=== PATIENT | male | born 1985 | race Caucasian/White ===

== ENCOUNTER 2017-06-28 08:42 | Emergency (ER) | payer MEDICARE, MEDICAID ==
[~2017-06-28] VITALS: Ht 167.6 cm; Wt 64.4 kg
[2017-06-28 08:47] VITALS: BP 135/85
[2017-06-28] MEDS ORDERED: BUPR1FIL7 SL (08:52)
--- NOTE | 2017-06-28 08:55 | ER Report ---
History and Physical Time Seen By MD: 08:53 Hx. of Stated Complaint: PT PRESENTS WITH HX OF HYDRODENITIS(?) . STATES IT IS PAINFUL AND NOW IT IS SPREADING HPI/ROS CHIEF COMPLAINT: hidradenitis pain and flare up HISTORY OF PRESENT ILLNESS: This is a 32 year old male. He is having flare up of hidradenitis in groin through toward buttocks. Was very swollen and red, but started draining today. Has had this off and on many times. Last time on antibiotics a few months ago. Has had surgeries in the past. 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 Intermittent fevers. No problems urinating or with bowels other than pain. Allergies: Coded Allergies: No Known Drug Allergies (Unverified , 06/28/17) Home Meds Active Scripts Ketorolac Tromethamine (KETOROLAC TROMETHAMINE) 10 Mg Tab, 10 MG PO Q6H Y for PAIN, #12 TAB 0 Refills Prov:KESHAWN MIMS MD 06/28/17 Doxycycline Hyclate (DOXYCYCLINE HYCLATE) 100 Mg Capsule, 100 MG PO BID, #20 CAPSULE 0 Refills Prov:KESHAWN MIMS MD 06/28/17 Reported Medications Buprenorphine Hcl/Naloxone Hcl (SUBOXONE 8 MG-2 MG SL FILM) 1 Each Film, 1 EACH SL BID, FILM 06/28/17 Reviewed Nurses Notes: Yes Hx Substance Use Disorder: No Hx Alcohol Use: No Constitutional Vital Sign - Last 24 Hours 06/28/17 08:47 Temp 98.3 Pulse 82 Resp 20 B/P (MAP) 135/85 Pulse Ox 98 O2 Delivery Room Air Physical Exam General Appearance: The patient is alert. No acute distress. Respiratory: Breathing easily and unlabored. Genitourinary: erythema and swelling with pain over the area of the perineum. Does not involve the scrotum. Neurological: Alert and oriented x3. No focal neurologic deficits Skin: As above. DIFFERENTIAL DIAGNOSIS: After history and physical exam, differential diagnosis was considered for acute infection of hidradenitis suppurativa. Medical Decision Making ED Course/Re-evaluation ED Course Will treat with Doxycycline. No need for surgical drainage as it is draining at this time, but may need such intervention if not clearing. Discussed having him see the pin sorter and bagger for further treatment options. Provided Toradol for pain control; avoiding any opioids or controlled medication based on his history and the patient is in total agreement with this as well. Decision to Disposition Date: Jun 28, 2017 Decision to Disposition Time: 09:10 Depart Departure Latest Vital Signs Vital Signs Date Time Temp Pulse Resp B/P (MAP) Pulse Ox O2 Delivery O2 Flow Rate FiO2 06/28/17 08:47 98.3 82 20 135/85 98 Room Air Impression: Primary Impression: Hidradenitis suppurativa Condition: Condition Unchanged Disposition: HOME OR SELF-CARE New Scripts Ketorolac Tromethamine (KETOROLAC TROMETHAMINE) 10 Mg Tab 10 MG PO Q6H Y for PAIN, #12 TAB 0 Refills Prov: KESHAWN MIMS MD 06/28/17 Doxycycline Hyclate (DOXYCYCLINE HYCLATE) 100 Mg Capsule 100 MG PO BID, #20 CAPSULE 0 Refills Prov: KESHAWN MIMS MD 06/28/17 Patient Instructions: Hidradenitis Suppurativa (ED) Additional Instructions: Take Doxycycline 100mg twice a day for 10 days. Take Toradol 10mg, one every 6 hours as needed to help with pain. Consider seeing Dr. Dorman, Dermatology, for further evaluation and other medication options. You can call to schedule an appointment with md. He is usually here in [place] on . KESHAWN MIMS MD Jun 28, 2017 08:55
[2017-06-28] MEDS ORDERED: DOXY-181 PO (09:18)
[2017-06-28] MEDS ORDERED: KET10 PO (09:18)
== END 2017-06-28 09:43 | disposition home or self-care (01) ==
LOC: ER 08:59
DX: L73.2 Hidradenitis suppurativa (principal)
CPT/HCPCS: 99282

== ENCOUNTER 2017-08-09 12:07 | Emergency (ER) | payer MEDICARE, MEDICAID ==
[~2017-08-09 12:07] MED LIST: BUPR1FIL7 SL; DOXY-181 PO; KET10 PO
[2017-08-09] MEDS ORDERED: IBUPROFEN 600 MG TAB PO ONE (12:45)
[2017-08-09] MEDS ORDERED: DOXYCYCLINE HYCL 100 MG TAB PO ONE (12:45)
[2017-08-09] MEDS ORDERED: DOXY-228 PO (14:20)
[2017-08-09] MEDS ORDERED: IBUP600T22 PO (14:20)
--- NOTE | 2017-08-09 14:35 | ER Report ---
History and Physical Time Seen By MD: 12:30 Hx. of Stated Complaint: PAINFUL SKIN RASH ON BUTTOCKS HPI/ROS This is an otherwise healthy 32-year-old male with an extensive history of hidradenitis of the buttocks area. He developed this chronic disease approximately 8 years ago while living in [place]. He has had upwards of 11 surgeries and an attempt to him of the disease. He moved to [facility] 2 months ago. He felt as if he was starting to develop abscesses approximately 3 weeks ago and came to the emergency department and was placed on doxycycline at that time. He says he feels like the antibiotics helped but after the course of antibiotics be abscesses returned and now he states that he has multiple areas of his buttocks that are painful and draining pus. No fever or chills. He otherwise feels at his baseline. Remainder of the 14 system rev: Yes Allergies: Coded Allergies: No Known Drug Allergies (Unverified , 08/09/17) Home Meds Discontinued Reported Medications Buprenorphine Hcl/Naloxone Hcl (SUBOXONE 8 MG-2 MG SL FILM) 1 Each Film, 1 EACH SL BID, FILM 06/28/17 Discontinued Scripts Ketorolac Tromethamine (KETOROLAC TROMETHAMINE) 10 Mg Tab, 10 MG PO Q6H Y for PAIN, #12 TAB 0 Refills Prov:KESHAWN MIMS MD 06/28/17 Doxycycline Hyclate (DOXYCYCLINE HYCLATE) 100 Mg Capsule, 100 MG PO BID, #20 CAPSULE 0 Refills Prov:KESHAWN MIMS MD 06/28/17 Reviewed Nurses Notes: Yes Old Medical Records Reviewed: Yes Hx Smoking: Yes Smoking Status: Current: Every Day Smoker Hx Substance Use Disorder: No Hx Alcohol Use: No Constitutional Vital Sign - Last 24 Hours 08/09/17 12:12 Temp 98.2 Pulse 90 Resp 18 B/P (MAP) 164/106 Pulse Ox 94 O2 Delivery Room Air Physical Exam General Appearance: The patient is alert, has no immediate need for airway protection and no current signs of toxicity. Eyes: Pupils equal and round no injection. Respiratory: Chest is non tender, lungs are clear to auscultation. Cardiac: regular rate and rhythm Gastrointestinal: Abdomen is soft and non tender, no masses, bowel sounds normal. Skin: Extensive scarring on his buttocks. Multiple areas of drainage. No evidence of cellulitis. Large areas of induration without fluctuance. DIFFERENTIAL DIAGNOSIS: After history and physical exam differential diagnosis was considered for cellulitis, multiple abscesses with tracts Medical Decision Making ED Course/Re-evaluation ED Course This is a 32-year-old male with an extensive history of complications from hidradenitis on his buttocks. He's had multiple surgeries in attempt to have the problem. Not on daily antibiotics at this time. Continues to develop multiple abscesses. Seen in the ED a few weeks ago for the same and was placed on antibiotics. I&D of multiple actively draining sites on his buttocks was performed by me. The patient was placed on doxycycline twice a day, and given the 1st dose in the emergency department. I did speak with Dr. Gonzales about the complicated chronic process. Dr. Gonzales will see the patient in his clinic tomorrow at 1530 and develop a plan for both the acute as well as chronic problem. No evidence of systemic infection at this point. Decision to Disposition Date: Aug 09, 2017 Decision to Disposition Time: 14:33 Depart Departure Latest Vital Signs Vital Signs Date Time Temp Pulse Resp B/P (MAP) Pulse Ox O2 Delivery O2 Flow Rate FiO2 08/09/17 12:12 98.2 90 18 164/106 94 Room Air Impression: Primary Impression: Abscess Condition: Improved Disposition: HOME OR SELF-CARE Referrals: BRUNA ANDRE MD New Scripts Ibuprofen (IBUPROFEN) 600 Mg Tablet 1 TAB PO Q6H for 14 Days, #30 TAB Prov: WINTER PRINGLE MD 08/09/17 Doxycycline Hyclate (DOXYCYCLINE HYCLATE) 100 Mg Tablet. 100 MG PO BID for 28 Days, #56 TAB Prov: WINTER PRINGLE MD 08/09/17 Patient Instructions: Abscess Incision and Drainage (GEN) Additional Instructions: You have an appointment to see Dr. Gonzales tomorrow at 3:15 PM. WINTER PRINGLE MD Aug 09, 2017 14:35
[2017-08-09 14:44] VITALS: BP 135/75
== END 2017-08-09 14:46 | disposition home or self-care (01) ==
LOC: ER 12:13
DX: L02.31 Cutaneous abscess of buttock (principal)
CPT/HCPCS: 99283; A9270

== ENCOUNTER → 2017-08-12 | Outpatient (CLI) | payer MEDICARE, MEDICAID ==
[~2017-08-12] MED LIST changes: +DOXY-228 PO; +GADOBENATE 529MG/1ML 15ML VIAL IVP ONE; +IBUP600T22 PO; +NS 0.9% 20 ML SDV 40 ML ONE; +NS(*) 0.9% 10 ML VIAL 0 ML ONE
--- NOTE | 2017-08-12 08:09 | RADIOLOGY IMAGING REPORT ---
FACILITY: [facility] - [place] PATIENT NAME: Zaina Cabral : 1985 MR: [id number] V: [id number] EXAM DATE: ORDERING PHYSICIAN: BRUNA ANDRE TECHNOLOGIST: Location: [facility] - [place] Patient: Zaina Cabral : 1985 Visit/Account:[id number] Date of Sevice: 08/12/2017 Radiograph INDICATION: Pre-MR screening COMPARISON: None available FINDINGS: No dense foreign debris in the orbits. Clear sinuses and normal osseous structures. IMPRESSION: Normal orbit radiograph without foreign debris. Report Dictated By: Allan Smalls MD at 08/12/2017 8:03 AM Report E-Signed By: Allan Smalls MD at 08/12/2017 8:05 AM WSN:[email or web address]
--- NOTE | 2017-08-12 10:59 | RADIOLOGY IMAGING REPORT ---
FACILITY: [facility] - [place] PATIENT NAME: Zaina Cabral : 1985 MR: [id number] V: [id number] EXAM DATE: ORDERING PHYSICIAN: BRUNA ANDRE [place]CHN[place]: [place] [facility] [place] Zaina Cab[place] : 1985 Visit/Account:[id number] Date of Sevice: 08/12/2017 Examination: MRI pelvis without and with contrast HISTORY: Hidradenitis suppurativa. TECHNIQUE: Multiplanar, multisequence MRI examination is performed of the pelvis before and after the administration of 15 mL IV MultiHance. COMPARISON: None. FINDINGS: There are enlarged inguinal lymph nodes identified bilaterally. These demonstrate relatively diffuse, post gadolinium enhancement. For index purposes, a right sided node on MR series #16 image 33 measur es 1.7 x 2.3 cm in size. A left-sided node on the same MR series image #31 measures 1.5 x 2.4 cm in s ize. There is a right-sided common femoral chain node measuring 1.7 x 2.4 cm. No additional pelvic no dilan are seen. These lymph nodes are nonspecific. These could be related to infection/inflammation. Ly mphoproliferative disorder such as lymphoma must be considered in the differential given the size and number of these nodes. There is abnormal signal identified within the buttock soft tissues. This is seen to involve the subc utaneous tissues just deep to the skin surface. This is most pronounced involving the right buttock. This extends into the inferior gluteal crease with extension into the perianal and the perirectal sof t tissues at the level of the levator ani musculature. This crosses the midline and involves the medi al aspect of the left buttock soft tissues. There are serpiginous areas of T2 signal identified. Foll owing administration of gadolinium, this area demonstrates a mild diffuse enhancement type pattern. D eeper subcutaneous tissues are normal. The underlying gluteal musculature is normal. Differential wou ld favor a large soft tissue hemangioma. Correlate with history and physical examination. The cranioc audal extent of this area within the right buttock soft tissues when viewed in the sagittal plane heron sures at least 16.5 cm. The marrow pattern of the proximal femora is normal. Marrow pattern of the bony pelvis is unremarkabl e. No free pelvic fluid. IMPRESSION: 1. Nonspecific, enlarged, enhancing bilateral inguinal lymph nodes as described above. These could be reactive/infectious but a neoplastic etiologies in the setting of lymphoma would also be included in the differential. Clinical correlation is necessary. If clinically indicated, consider tissue sampli ng. 2. Findings most compatible with a large subcutaneous soft tissue hemangioma involving the right butt ock soft tissues extending to the left of midline as above at the level of the levator ani musculatur e and the perianal soft tissues. Correlation with history and physical examination is necessary. Report Dictated By: Scooter Brooks at 08/12/2017 10:39 AM Report E-Signed By: Scooter Brooks at 08/12/2017 10:54 AM WSN:[id number]
== END ==
LOC: MRI 02:59
PROVIDERS: ATTEND Surgery
DX: D18.01 Hemangioma of skin and subcutaneous tissue (principal); R59.0 Localized enlarged lymph nodes
CPT/HCPCS: 70200; 72197; A9577; J7050

== ENCOUNTER 2017-08-19 02:53 | Day surgery (SDC) | payer MEDICARE, MEDICAID ==
[~2017-08-19] VITALS: Ht 165.1 cm; Wt 72.6 kg
[~2017-08-19 02:53] MED LIST changes: -GADOBENATE 529MG/1ML 15ML VIAL IVP ONE; -NS 0.9% 20 ML SDV 40 ML ONE; -NS(*) 0.9% 10 ML VIAL 0 ML ONE
[2017-08-19] MEDS ORDERED: NORMOSOL R SOLN(*) 1000 ML BAG 1,000 ML IV ONE (06:08)
[2017-08-19 07:45] VITALS: BP 140/88
[2017-08-19] MEDS ORDERED: METOCLOPRAMIDE 10 MG/2 ML SDV ONE (08:14)
[2017-08-19] MEDS ORDERED: PROPOFOL EMUL(*) 10MG/ML 20 ML 20 ML ONE (08:14)
[2017-08-19] MEDS ORDERED: LIDOCAINE MPF 1% 5 ML VIAL ONE (08:14)
[2017-08-19] MEDS ORDERED: ONDANSETRON 4 MG/2 ML VIAL ONE (08:14)
[2017-08-19] MEDS ORDERED: DEXAMETHASONE SOD 4 MG/ML VIAL ONE (08:14)
[2017-08-19] MEDS ORDERED: fentaNYL CITR 100 MCG/2 ML AMP ONE ×4 (08:17→12:45)
[2017-08-19] MEDS ORDERED: ROCURONIUM BROM 10 MG/ML 10 ML ONE (08:18)
[2017-08-19] MEDS ORDERED: SUGAMMADEX SOD 200 MG/2 ML SDV ONE (08:18)
[2017-08-19] MEDS ORDERED: NORMOSOL R SOLN(*) 1000 ML BAG 1,000 ML IV PRN (08:45)
[2017-08-19] MEDS ORDERED: LIDOCAINE/SOD BICARB 8.4% SYR ID ONE (08:45)
[2017-08-19] MEDS ORDERED: MIDAZOLAM 2 MG/2 ML VIAL IVP PRN (08:45)
[2017-08-19] MEDS ORDERED: FAMOTIDINE 20 MG TAB PO ONE (08:45)
[2017-08-19] MEDS ORDERED: NEOMYCIN/POLYMYX/BACITR 30 GM TP ONE (10:00)
[2017-08-19] MEDS ORDERED: ROPIVACAINE 0.5% 20 ML VIAL ONE (10:00)
[2017-08-19] MEDS ORDERED: AMPICILLIN/SULBACT (*) 3 GM VL 3 GM in NS(*) 0.9% 100 ML BAG 100 ML IVPB ONE (10:35)
[2017-08-19] MEDS ORDERED: ACETAMINOPHEN(*)1000 MG/100 ML 100 ML IVPB ONE (11:09)
[2017-08-19] MEDS ORDERED: KETOROLAC 30 MG/ML VIAL ONE (11:11)
[2017-08-19] MEDS ORDERED: LIDOCAINE 2% IV 100 MG/5ML SYR ONE (11:29)
[2017-08-19] MEDS ORDERED: MEPERIDINE 50 MG/ML SYR ONE (11:45)
--- NOTE | 2017-08-19 12:02 | Post Operative Progress Note ---
Post Operative Progress Note Date: Aug 19, 2017 Time: 11:54 Surgeon: Mckinley Dictation number: [id number] Anesthesia: GETA by Dr. Perry Pre-Op Diagnosis: Hidradenitis suppuritiva, right buttock Post-Op Diagnosis: ERNA Findings: C/W dx Procedure(s): Hidradenitis excision from right buttock Specimen Removed:(May be N/A): None Complications: None Fluids: See anesthesia record Estimated Blood Loss: Minimal Date OP Note Dictated: Aug 19, 2017 Time OP Note Dictated: 11:55 BRUNA ANDRE MD Aug 19, 2017 12:02
[2017-08-19 13:15] VITALS: BP 133/91
[2017-08-19 13:45] VITALS: BP 141/90
[2017-08-19 13:56] VITALS: BP 140/91
[2017-08-19] MEDS ORDERED: NICOTINE 14 MG/24 HR PATCH TD SCH (14:00)
[2017-08-19] MEDS ORDERED: DOCU-416 PO (14:20)
[2017-08-19] MEDS ORDERED: OXYC-854 PO (14:20)
--- NOTE | 2017-08-19 14:24 | Short(Outpt) Discharge Summary ---
Discharge Summary Reason for Hosp/Final Diag: (1) Hidradenitis suppurativa Status: Chronic Hospital Course & Plan: Right buttock extensive hidradenitis excision completed without problems. Departure Discharge to: Home, Self Care Discharge Instructions Home Meds Active Scripts Docusate Sodium (COLACE) 100 Mg Capsule, 1 CAP PO BID, #30 CAP 0 Refills TAKE WITH A FULL GLASS OF WATER Prov:BRUNA ANDRE MD 08/19/17 Oxycodone Hcl/Acet 5/325 Mg (ENDOCET 5-325 TABLET) 1 Each Tablet, 1-2 TAB PO Q4H Y for PAIN, #30 TAB 0 Refills Prov:BRUNA ANDRE MD 08/19/17 Discontinued Scripts Doxycycline Hyclate (DOXYCYCLINE HYCLATE) 100 Mg Tablet., 100 MG PO BID for 28 Days, #56 TAB Prov:WINTER PRINGLE MD 08/09/17 Follow up Referrals: General Surgery - 08/20/17 @ Surgery, General with Bruna Andre Md You have a follow up appointment scheduled with Dr. Andre on 08/20/17, at 12:30pm. Diet: Regular Activity: As Tolerated Special Instructions: Leave the dressings in place until I see you in my office on 08/20/17 to remove the initial dressing. You will be able to shower after we get you set up with home dressing changes starting on 08/21/17, but you should remove all dressings and shower without anything on the wounds and then apply new dressings after getting out of the shower. No baths, hottubs, swimming pools, swimming in lakes, baron, etc, or anything that involves immersing the wounds until after they are completely healed. BRUNA ANDRE MD Aug 19, 2017 14:24
--- NOTE | 2017-08-19 18:47 | OPERATIVE REPORT 1 ---
EVENT DATE: August 19, 2017 SURGEON: Jose Sen MD ANESTHESIOLOGIST: Jose Perry MD ANESTHESIA: General endotracheal anesthesia. PREOPERATIVE DIAGNOSIS Recurring hidradenosis, right buttock. POSTOPERATIVE DIAGNOSIS Recurring hidradenitis, right buttock. PROCEDURE PERFORMED Excision of hidradenitis from right buttock. COMPLICATIONS None. CONDITION Stable. BLOOD LOSS Minimal. FINDINGS The patient had six openings in his right buttock skin that went down into sinus tracts that were quite serpiginous throughout the subcutaneous tissues of his right buttock. INDICATIONS This is a 32-year-old gentleman who has hidradenitis suppurativa involving both buttocks, but his current issues are with his right buttock. He has had multiple, he says 12, previous surgical excisions on both buttocks for hidradenitis over the last eight years. He now has several openings to the skin that are draining purulent fluid, and he has quite a bit of pain and constant copious amounts of drainage. He would like to have excision of these sinus tracts. DESCRIPTION OF PROCEDURE The patient was brought to the operating room and placed supine on the operating table. General endotracheal anesthesia was administered. He was placed in a prone position on the procedure table. His buttocks were prepped and draped in a sterile fashion. A timeout was completed. I anesthetized the skin around each of the sinus tract openings with 0.5% ropivacaine plain. I then made circular incisions around the sinus tract openings and dissected through the derm and subcutaneous tissues. When I popped into the sinus tracts , I used a probe and could probe which directions the sinus tracts were going in , and then I opened the overlying skin along the entire length of all these sinus tracts. Once I had the entire areas open, I cut off the overlying skin to make sure the wound was wide open, and then I curetted out all the granulation tissue. I then irrigated and dried the wound and made sure it was hemostatic. There were two sinus tract openings about an inch apart from each other inferior on his right buttock, and I opened these up and connected them together, and they just simply connected with each other and did not seem to go anywhere else. This area was debrided as well. That wound was approximately 1- 1/2 inches long x 3/4 of an inch wide. The main wound was not completely circular or square, but it was an odd shape when all was said and done. Approximately it was about 10 inches long x 5 inches wide and a full inch deep. I packed the big wound with a moist Kerlix gauze and then 2 x 2 gauze in the inferior smaller wound. I then covered the entire area with 4 x 4 gauze and ABD pads, and these were all taped into place. He was then rolled into a supine position, awakened and extubated in the operating room, and transported to the recovery room in stable condition having tolerated the procedure without any apparent problems. YASMINE
== END 2017-08-19 13:15 | disposition home or self-care (01) ==
LOC: OR 02:53
PROVIDERS: ATTEND Surgery
DX: D23.5 Other benign neoplasm of skin of trunk (principal)
CPT/HCPCS: 11470; A9270; J0131; J0295; J1100; J1885; J2001; J2175; J2405; J2704; J2765; J2795; J3010; J7050

== ENCOUNTER 2017-10-21 10:16 | Emergency (ER) | payer MEDICARE, MEDICAID ==
[~2017-10-21 10:16] MED LIST changes: +DOCU-416 PO; +OXYC-854 PO
[2017-10-21] MEDS ORDERED: KETOROLAC 60 MG/2 ML VIAL IM ONE (10:35)
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
[2017-10-21 11:30] VITALS: BP 127/104
== END 2017-10-21 11:51 | disposition home or self-care (01) ==
LOC: ER 10:21
DX: S20.219A Contusion of unspecified front wall of thorax, initial encounter (principal); F17.210 Nicotine dependence, cigarettes, uncomplicated
CPT/HCPCS: 71046; 71100; 99283

== ENCOUNTER 2017-11-12 17:29 | Emergency (ER) | payer MEDICARE, MEDICAID ==
[2017-11-12] MEDS ORDERED: KETOROLAC 60 MG/2 ML VIAL IM ONE (17:45)
--- NOTE | 2017-11-12 18:10 | ER Report ---
History and Physical Time Seen By MD: 18:10 Hx. of Stated Complaint: pt suffers from hydradenitis, pain and limited rom, pain and swelling in buttox , needs abscess drained HPI/ROS CHIEF COMPLAINT: hydradenitis with pain and swelling HISTORY OF PRESENT ILLNESS: This is a 32 year old male. He has a history of hydradenitis suppurative, in the buttock area. has had surgery recently on the right side with Dr. Andre and had been healing well. He was going to see Dr. Andre for follow-up next week to talk about the left side. He is now having several days of pain and swelling and could not wait for the appointment next week. He has been having some drainage, but stopped today. Worried about an abscess. Severe associated pain. Allergies: Coded Allergies: No Known Drug Allergies (Unverified , 08/09/17) Home Meds Active Scripts Doxycycline Hyclate (DOXYCYCLINE HYCLATE) 100 Mg Capsule, 100 MG PO BID, #14 CAPSULE 0 Refills Prov:KESHAWN MIMS MD 11/12/17 Ketorolac Tromethamine (KETOROLAC TROMETHAMINE) 10 Mg Tab, 10 MG PO Q6H Y for PAIN, #12 TAB 0 Refills Prov:KESHAWN MIMS MD 11/12/17 Oxycodone Hcl/Acetaminophen (PERCOCET 5-325 MG TABLET) 1 Each Tablet, 1 EACH PO Q4H Y for PAIN, #18 TAB 0 Refills Prov:KESHAWN MIMS MD 11/12/17 Reviewed Nurses Notes: Yes Hx Smoking: Yes (1PP WEEKLY 15 YRS) Smoking Status: Current: Every Day Smoker Hx Substance Use Disorder: No Hx Alcohol Use: Yes (1-2 week) Constitutional Vital Sign - Last 24 Hours 11/12/17 11/12/17 17:36 18:20 Temp 98.1 Pulse 107 80 Resp 16 16 B/P (MAP) 146/83 130/98 (109) Pulse Ox 93 93 O2 Delivery Room Air Room Air Physical Exam General: Alert, moderate distress from pain. Laying on ER bed in prone position. Skin: Scarring throughout the buttock area. Red, swollen and tender on the left side of buttocks extending to in between the legs. Very tender to palpation, but cannot feel a fluctuant pocket. Medical Decision Making ED Course/Re-evaluation ED Course Bedside ultrasound used. Cannot see a fluid pocket, just changes associated with acute inflammation. Recommended soaks, hot compress, Rocephin 1g IM, and start on doxycyline and percocet and toradol for pain. He will see Dr. Andre at his appointment on Wednesday. Decision to Disposition Date: Nov 12, 2017 Decision to Disposition Time: 18:30 Depart Departure Latest Vital Signs Vital Signs Date Time Temp Pulse Resp B/P (MAP) Pulse Ox O2 Delivery O2 Flow Rate FiO2 11/12/17 18:20 80 16 130/98 (109) 93 Room Air 11/12/17 17:36 98.1 Impression: Primary Impression: Hidradenitis suppurativa Condition: Condition Unchanged Disposition: HOME OR SELF-CARE Referrals: BRUNA ANDRE MD (PCP) New Scripts Doxycycline Hyclate (DOXYCYCLINE HYCLATE) 100 Mg Capsule 100 MG PO BID, #14 CAPSULE 0 Refills Prov: KESHAWN MIMS MD 11/12/17 Ketorolac Tromethamine (KETOROLAC TROMETHAMINE) 10 Mg Tab 10 MG PO Q6H Y for PAIN, #12 TAB 0 Refills Prov: KESHAWN MIMS MD 11/12/17 Oxycodone Hcl/Acetaminophen (PERCOCET 5-325 MG TABLET) 1 Each Tablet 1 EACH PO Q4H Y for PAIN, #18 TAB 0 Refills Prov: KESHAWN MIMS MD 11/12/17 Patient Instructions: Hidradenitis Suppurativa (ED) Additional Instructions: Hot compresses or heating pad every hour while awake. Start Doxycycline 100mg twice a day. Take Percocet 5/325, one every 4 hours as needed for pain. Take Toradol 10mg, one every 6 hours as needed for pain. Follow-up with Dr. Andre next week on Wednesday or Wednesday. KESHAWN MIMS MD Nov 12, 2017 18:10
[2017-11-12 18:20] VITALS: BP 130/98
[2017-11-12] MEDS ORDERED: oxyCODONE/ACETAMIN 5/325MG TH 2 TAB/BOTTLE PO ONE (18:30)
[2017-11-12] MEDS ORDERED: LIDOCAINE 1% MDV 200 MG/20 ML INJ ONE (18:30)
[2017-11-12] MEDS ORDERED: cefTRIAXone 1 GM VIAL IM ONE (18:30)
[2017-11-12] MEDS ORDERED: DOXYCYCLINE HYCL 100 MG TAB TH PO ONE (18:30)
[2017-11-12] MEDS ORDERED: KET10 PO (18:31)
[2017-11-12] MEDS ORDERED: DOXY-181 PO (18:31)
[2017-11-12] MEDS ORDERED: OXYC-865 PO (18:31)
[2017-11-12] MEDS ORDERED: KETOROLAC TROM 10 MG TAB TH PO ONE (18:35)
== END 2017-11-12 18:40 | disposition home or self-care (01) ==
LOC: ER 18:09
DX: L73.2 Hidradenitis suppurativa (principal)
CPT/HCPCS: 96372; 99284; A9270; J0696; J1885; J2001

== ENCOUNTER 2017-11-25 01:17 | Observation (INO) | payer MEDICARE, MEDICAID ==
[~2017-11-25] VITALS: Ht 167.6 cm; Wt 68.9 kg
[2017-11-25] VITALS (17 sets, daily range): BP systolic 118–149; BP diastolic 75–99
[~2017-11-25 01:17] MED LIST changes: +OXYC-865 PO
[2017-11-25] MEDS ORDERED: fentaNYL CITR 250 MCG/5 ML AMP ONE (08:40)
[2017-11-25] MEDS ORDERED: LIDOCAINE 2% IV 100 MG/5ML SYR ONE (08:42)
[2017-11-25] MEDS ORDERED: PROPOFOL EMUL(*) 10MG/ML 20 ML 20 ML ONE (08:43)
[2017-11-25] MEDS: FAMOTIDINE 20 MG TAB PO ONE ×2 (08:56→09:15)
[2017-11-25] MEDS ORDERED: AMPICILLIN/SULBACT (*) 3 GM VL 3 GM in NS(*) 0.9% 100 ML BAG 100 ML IVPB ONE (09:15)
[2017-11-25] MEDS ORDERED: LIDOCAINE/SOD BICARB 8.4% SYR ID ONE (09:15)
[2017-11-25] MEDS ORDERED: NORMOSOL R SOLN(*) 1000 ML BAG 1,000 ML IV PRN (09:15)
[2017-11-25] MEDS ORDERED: MIDAZOLAM 2 MG/2 ML VIAL IVP PRN (09:15)
[2017-11-25] MEDS ORDERED: ROPIVACAINE 0.5% 20 ML VIAL ONE (09:18)
[2017-11-25] MEDS ORDERED: FAMOTIDINE 20 MG/50 ML PREMIX IVPB ONE (09:20)
[2017-11-25] MEDS ORDERED: SUCCINYLCHOL CHL 100MG/5ML SYR IVP ONE (09:45)
[2017-11-25] MEDS ORDERED: DEXAMETHASONE SOD 4 MG/ML VIAL ONE ×2 (09:49→11:01)
[2017-11-25] MEDS ORDERED: KETOROLAC 30 MG/ML VIAL ONE (09:53)
[2017-11-25] MEDS ORDERED: ONDANSETRON 4 MG/2 ML VIAL ONE ×2 (09:53→11:02)
[2017-11-25] MEDS ORDERED: fentaNYL CITR 100 MCG/2 ML AMP ONE (10:51)
[2017-11-25] MEDS ORDERED: OXYC-854 PO (10:55)
[2017-11-25] MEDS ORDERED: DOCU-416 PO (10:55)
--- NOTE | 2017-11-25 10:57 | Short(Outpt) Discharge Summary ---
Discharge Summary Reason for Hosp/Final Diag: (1) Hidradenitis suppurativa Status: Chronic Hospital Course & Plan: Left buttock/thigh and right thigh hidradenitis excision completed without problems. Departure Discharge to: Home, Self Care Discharge Instructions Home Meds Active Scripts Docusate Sodium (COLACE) 100 Mg Capsule, 1 CAP PO BID, #30 CAP 0 Refills TAKE WITH A FULL GLASS OF WATER Prov:JOSE ANDRE MD 11/25/17 Oxycodone Hcl/Acet 5/325 Mg (ENDOCET 5-325 TABLET) 1 Each Tablet, 1-2 TAB PO Q4H Y for PAIN, #30 TAB 0 Refills Prov:JOSE ANDRE MD 11/25/17 Doxycycline Hyclate (DOXYCYCLINE HYCLATE) 100 Mg Capsule, 100 MG PO BID, #14 CAPSULE 0 Refills Prov:KESHAWN MIMS MD 11/12/17 Discontinued Scripts Ketorolac Tromethamine (KETOROLAC TROMETHAMINE) 10 Mg Tab, 10 MG PO Q6H Y for PAIN, #12 TAB 0 Refills Prov:KESHAWN MIMS MD 11/12/17 Follow up Referrals: General Surgery - 11/26/17 @ Surgery, General with Jose Andre Md You have a follow up appointment scheduled with Dr. Andre on 11/26/17, at 2:00pm. Diet: Regular Activity: As Tolerated Special Instructions: Leave the dressing in place until I see you back in my office on 11/26/17, at 2:00pm. JOSE ANDRE MD Nov 25, 2017 10:57
--- NOTE | 2017-11-25 11:03 | Post Operative Progress Note ---
Post Operative Progress Note Date: Nov 25, 2017 Time: 10:57 Surgeon: Mckinley Dictation number: [id number] Anesthesia: GETA by Dr. Farnsworth Pre-Op Diagnosis: Hidradenitis suppuritiva on left buttock, left inner thigh, and right inner thigh Post-Op Diagnosis: ERNA Findings: C/W dx Procedure(s): Excision of right inner thigh hidradenitis, left inner thigh and left buttock hidradenitis Specimen Removed:(May be N/A): Buttock hidradenitis Complications: None Fluids: See anesthesia record Estimated Blood Loss: Minimal Date OP Note Dictated: Nov 25, 2017 Time OP Note Dictated: 10:58 BRUNA ANDRE MD Nov 25, 2017 11:03
[2017-11-25] MEDS ORDERED: PROMETHAZINE 25 MG/ML 1 ML AMP ONE (12:02)
--- NOTE | 2017-11-25 12:08 | OPERATIVE REPORT 1 ---
EVENT DATE: November 25, 2017 SURGEON: Jose Sen M.D. ANESTHESIOLOGIST: Artem Farnsworth M.D. ANESTHESIA: General endotracheal. NURSE AUDITOR: [*] PREOPERATIVE DIAGNOSIS Buttock hidradenitis. POSTOPERATIVE DIAGNOSIS Buttock hidradenitis. PROCEDURE PERFORMED 1. Excision of hidradenitis from left buttock. 2. Excision of hidradenitis from left inner thigh. 3. Excision of hidradenitis from right inner thigh. ESTIMATED BLOOD LOSS Minimal. COMPLICATIONS None. CONDITION Stable. INDICATIONS Patient is a 32-year-old gentleman who I first started seeing several months ago with an extensive hidradenitis on his buttocks. I performed a right buttock excision of hidradenitis that was pretty extensive and he had good results to this but then subsequently developed a couple of more sinus tracts on his both right and left inner thighs as well as his left buttock. He was happy with this previous excision and requested that I perform an extensive hidradenitis excision on these areas. DESCRIPTION OF PROCEDURE The patient was brought to the operating room and placed supine on the operating table. General endotracheal anesthesia was administered and he was placed prone on the operating table in a prone mic-knife position. His buttocks and inner thighs were prepped and draped in a sterile fashion. A time- out was completed. I anesthetized the skin around each of the obvious sinus openings and started with his right inner thigh and made an incision around the sinus tract and then got down into the deeper portion of the sinus tract, which was obviously granulation tissue. I dissected all the way around the sinus tract, occasionally coming across and finding more granulation tissue so kept going with the dissection until I got completely around the entire sinus tract and the wound was just surrounded by completely normal healthy dermis and subcutaneous fat but no remaining granulation tissue. This wound was made hemostatic and then I went to the left inner thigh and performed the same thing , making an incision around the obvious sinus opening and then came posterior along the patient's thigh and up towards his buttock and it was all connected in one complex of sinus tracts connecting a couple of other openings. I continued dissecting and removing the entire sinus complex and this was passed off the field. When this was all done, there was nothing but healthy appearing subcutaneous fat and skin. I left him with a left buttock wound contiguous with the inner thigh wound that was about 12 or so cm across and about 20 cm long and on the right side it was just about 2 cm wide x about 8 cm long on his right inner thigh. These were all made hemostatic, irrigated and dried and then packed with moist gauze and covered with dry gauze and ABD pads. He was placed in net panties and rolled supine, awakened and extubated and transported to the recovery room in stable condition. He tolerated the procedure without any apparent problems. YASMINE
[2017-11-25] MEDS ORDERED: LIDOCAINE/SOD BICARB 8.4% SYR ONE (14:38)
[2017-11-25] MEDS ORDERED: MORPHINE 4 MG/ML SDV IVP ONE (14:45)
[2017-11-25] MEDS ORDERED: NS(*) 0.9% 1000 ML BAG 1,000 ML IV PRN ×2 (14:58→15:10)
[2017-11-25] MEDS ORDERED: ONDANSETRON 4 MG/2 ML VIAL IVP PRN (15:00)
[2017-11-25] MEDS ORDERED: PROMETHAZINE 25 MG/ML 1 ML AMP IVP PRN (15:00)
[2017-11-25] MEDS ORDERED: FLUSH 10 ML SYR IVP PRN (15:00)
[2017-11-25] MEDS ORDERED: NALOXONE HCL 0.4 MG/ML VIAL IVP PRN (15:00)
[2017-11-25] MEDS ORDERED: MORPHINE 2 MG/ML SYR IVP PRN (17:00)
[2017-11-25] MEDS: NICOTINE 14 MG/24 HR PATCH TD SCH (19:24)
[2017-11-25] MEDS: DOCUSATE SODIUM 100 MG CAP PO SCH (20:48)
[2017-11-25] MEDS: FAMOTIDINE 20 MG TAB PO SCH (20:49)
[2017-11-26] VITALS: BP 134/88
[2017-11-26 02:00] VITALS: BP 136/71
[2017-11-26 04:00] VITALS: BP 143/89
[2017-11-26 06:00] VITALS: BP 133/76
[2017-11-26 06:56] VITALS: BP 148/94
--- NOTE | 2017-11-26 07:49 | Short(Outpt) Discharge Summary ---
Discharge Summary Reason for Hosp/Final Diag: (1) Hidradenitis suppurativa Status: Chronic Hospital Course & Plan: 11/25/17: Left buttock/thigh and right thigh hidradenitis excision completed without problems. 11/26/17: Pt admitted with bleed from his wound. Controlled with a suture on a bleeder and then a pressure dressing. Now doing much better this morning. Will d/c to home this morning after case management sets up home health nursing for the 1st 2 weeks to assist him with wound care. I will see him back in my office on 12/01/17, at 4:00pm. Departure Discharge to: Home, Home Health Discharge Instructions Home Meds Active Scripts Docusate Sodium (COLACE) 100 Mg Capsule, 1 CAP PO BID, #30 CAP 0 Refills TAKE WITH A FULL GLASS OF WATER Prov:JOSE ANDRE MD 11/25/17 Oxycodone Hcl/Acet 5/325 Mg (ENDOCET 5-325 TABLET) 1 Each Tablet, 1-2 TAB PO Q4H Y for PAIN, #30 TAB 0 Refills Prov:JOSE ANDRE MD 11/25/17 Discontinued Scripts Doxycycline Hyclate (DOXYCYCLINE HYCLATE) 100 Mg Capsule, 100 MG PO BID, #14 CAPSULE 0 Refills Prov:KESHAWN MIMS MD 11/12/17 Ketorolac Tromethamine (KETOROLAC TROMETHAMINE) 10 Mg Tab, 10 MG PO Q6H Y for PAIN, #12 TAB 0 Refills Prov:KESHAWN MIMS MD 11/12/17 Follow up Referrals: General Surgery - 12/01/17 @ Surgery, General with Jose Andre Md You have a follow up appointment scheduled with Dr. Andre on 12/01/17, at 4: 00pm. Diet: Regular Activity: As Tolerated Special Instructions: With the assistance of home health nursing, change the dressing once daily. You can shower as desired. Don't immerse the wounds until they are healed. JOSE ANDRE MD Nov 26, 2017 07:49
[2017-11-26] MEDS: FAMOTIDINE 20 MG TAB PO SCH (09:00)
[2017-11-26] MEDS: DOCUSATE SODIUM 100 MG CAP PO SCH (09:00)
[2017-11-26] MEDS: NICOTINE 14 MG/24 HR PATCH TD SCH (09:00)
[2017-11-26 10:33] VITALS: Ht 167.6 cm; Wt 68.9 kg
== END 2017-11-26 07:44 | disposition home or self-care (01) ==
LOC: OR 01:17 → MED 16:01
PROVIDERS: ADMIT Surgery; ATTEND Surgery
DX: L73.2 Hidradenitis suppurativa (principal)
CPT/HCPCS: 11470; 88305; A9270; G0378; J0295; J0330; J1100; J1885; J2001; J2270; J2405; J2550; J2704; J2795; J3010; J7050

== ENCOUNTER 2017-11-26 19:47 | Emergency (ER) | payer MEDICARE, MEDICAID ==
[2017-11-26 10:33] VITALS: Wt 70.3 kg
--- NOTE | 2017-11-26 20:00 | ER Report ---
History and Physical Time Seen By MD: 20:00 (VIJI CUENCA DO) Time Seen By MD: 20:06 (JUSTUS WOOTEN) HPI/ROS CHIEF COMPLAINT: Postoperative complications HISTORY OF PRESENT ILLNESS: This is a 32-year-old male who presents to the emergency department via EMS for a postoperative problem. Patient states that he had a surgical procedure yesterday performed by Dr. Gonzales, 4 extensive hidradenitis. Patient states that after the surgery things were going fine when paulino at approximately 30 minutes later began to develop a large amount of bleeding from the wound site, he subsequently contacted Dr. moscoso and Dr. Wu Griffin did repair the wound again. Patient states that today he was doing okay went out to smoke a cigarette approximately 30-45 minutes prior to arrival and suddenly developed a gushing feeling down his legs, patient states that he noted a large amount of blood down both of his legs, patient subsequent call EMS for transport to the emergency department. Patient arrives laying prone alert and oriented, bleeding has subsided at this time however there is a large amount of blood to both of his legs a tele-saturated with blood EMS states they estimated about half a liter of blood noted when they picked the patient up. Patient denies nausea or vomiting at this time, no aches or chills, no fevers, he does have a moderate amount of pain to the buttock area. No chest pain or shortness of breath. REVIEW OF SYSTEMS: Constitutional: No fever, no chills. Eyes: No discharge. ENT: No sore throat. Cardiovascular: No chest pain, no palpitations. Respiratory: No cough, no shortness of breath. Gastrointestinal: No abdominal pain, no vomiting. Genitourinary: No hematuria. Musculoskeletal: As above. Skin: As above. Neurological: No headache. (JUSTUS WOOTEN) Allergies: Coded Allergies: No Known Drug Allergies (Unverified , 08/09/17) Home Meds Active Scripts Docusate Sodium (COLACE) 100 Mg Capsule, 1 CAP PO BID, #30 CAP 0 Refills TAKE WITH A FULL GLASS OF WATER Prov:BRUNA ANDRE MD 11/25/17 Oxycodone Hcl/Acet 5/325 Mg (ENDOCET 5-325 TABLET) 1 Each Tablet, 1-2 TAB PO Q4H Y for PAIN, #30 TAB 0 Refills Prov:BRUNA ANDRE MD 11/25/17 Discontinued Scripts Doxycycline Hyclate (DOXYCYCLINE HYCLATE) 100 Mg Capsule, 100 MG PO BID, #14 CAPSULE 0 Refills Prov:KESHAWN MIMS MD 11/12/17 Ketorolac Tromethamine (KETOROLAC TROMETHAMINE) 10 Mg Tab, 10 MG PO Q6H Y for PAIN, #12 TAB 0 Refills Prov:KESHAWN MIMS MD 11/12/17 Past Medical/Surgical History Patient has a past medical and surgical history of left shoulder dislocation, hidradenitis suppurativa, multiple surgeries, hernia repair, polysubstance abuse. (JUSTUS WOOTEN-ROBERTO) Hx Smoking: Yes Smoking Status: Current: Every Day Smoker Hx Substance Use Disorder: No Hx Alcohol Use: Yes (VIJI CUENCA DO) Constitutional Vital Sign - Last 24 Hours 11/26/17 11/26/17 11/26/17 11/26/17 19:53 19:54 19:56 20:00 Temp 98.7 Pulse 83 Resp 16 B/P (MAP) 134/93 (107) 126/92 (103) 126/92 127/81 (96) Pulse Ox 96 O2 Delivery Room Air 11/26/17 11/26/17 11/26/17 11/26/17 20:02 20:07 20:15 20:22 Pulse 77 84 78 B/P (MAP) 134/97 (109) Pulse Ox 94 96 95 11/26/17 11/26/17 11/26/17 11/26/17 20:30 20:37 20:45 20:52 Pulse 82 80 B/P (MAP) 144/88 (106) 141/89 (106) Pulse Ox 96 95 11/26/17 11/26/17 11/26/17 21:00 21:07 22:00 Pulse 77 85 Resp 16 B/P (MAP) 131/88 (102) 138/85 (102) Pulse Ox 97 92 O2 Delivery Room Air (JUSTUS WOOTEN-ROBERTO) Physical Exam General Appearance: The patient is alert, has no immediate need for airway protection and no signs of toxicity. [ ] Eyes: Pupils equal and round no pallor or injection. ENT, Mouth: Mucous membranes are moist. Respiratory: There are no retractions, lungs are clear to auscultation. Cardiovascular: Regular rate and rhythm. Gastrointestinal: Abdomen is soft and non tender, no masses, bowel sounds normal. Neurological: Alert and oriented 4. Moving all extremities. Following all commands. No focal neuro deficits. Skin: Warm and dry, no rashes. Extensive surgical wound to the left buttock into the left groin as well as into the right groin. There is exposed adipose and fascial tissue. The tissue appears healthy, pink no indication of infection. No active bleeding, serosanguineous oozing. No purulent drainage. Musculoskeletal: Neck is supple non tender. Extremities are nontender, nonswollen and have full range of motion. DIFFERENTIAL DIAGNOSIS: After history and physical exam differential diagnosis was considered for postoperative surgical wound excision complications. (JUSTUS WOOTENP-BC) Medical Decision Making Data Points Result Diagram: 11/26/17201711/26/172017 Laboratory Hematology Test 11/26/17 20:18 Red Blood Count 3.98 M/uL (4.00-5.60) Mean Corpuscular Volume 81.0 fL (80.0-96.0) Mean Corpuscular Hemoglobin 27.8 pg (26.0-33.0) Mean Corpuscular Hemoglobin Concent 34.4 g/dL (32.0-36.0) Red Cell Distribution Width 18.8 % (11.5-14.5) Mean Platelet Volume 7.6 fL (7.2-11.1) Neutrophils (%) (Auto) 48.7 % (39.4-72.5) Lymphocytes (%) (Auto) 41.9 % (17.6-49.6) Monocytes (%) (Auto) 6.7 % (4.1-12.4) Eosinophils (%) (Auto) 2.0 % (0.4-6.7) Basophils (%) (Auto) 0.7 % (0.3-1.4) Nucleated RBC Relative Count (auto) 0.0 /100WBC Neutrophils # (Auto) 5.3 K/uL (2.0-7.4) Lymphocytes # (Auto) 4.5 K/uL (1.3-3.6) Monocytes # (Auto) 0.7 K/uL (0.3-1.0) Eosinophils # (Auto) 0.2 K/uL (0.0-0.5) Basophils # (Auto) 0.1 K/uL (0.0-0.1) Nucleated RBC Absolute Count (auto) 0.01 K/uL Peripheral Blood Smear No Y/N Sodium Level 140 mmol/L (137-145) Potassium Level 3.6 mmol/L (3.5-5.0) Chloride Level 103 mmol/L (98-107) Carbon Dioxide Level 29 mmol/L (22-30) Blood Urea Nitrogen 12 mg/dl (9-21) Creatinine 0.80 mg/dl (0.66-1.25) Glomerular Filtration Rate Calc > 60.0 Random Glucose 89 mg/dl (75-110) Calcium Level 7.9 mg/dl (8.4-10.2) Total Bilirubin 0.2 mg/dl (0.2-1.3) Aspartate Amino Transf (AST/SGOT) 22 U/L (0-35) Alanine Aminotransferase (ALT/SGPT) 20 U/L (0-56) Alkaline Phosphatase 51 U/L (0-126) Total Protein 6.3 g/dl (6.3-8.2) Albumin 3.1 g/dl (3.5-5.0) Chemistry Test 11/26/17 20:18 White Blood Count 10.9 k/uL (4.5-11.0) Red Blood Count 3.98 M/uL (4.00-5.60) Hemoglobin 11.1 g/dL (14.0-18.0) Hematocrit 32.3 % (42.0-52.0) Mean Corpuscular Volume 81.0 fL (80.0-96.0) Mean Corpuscular Hemoglobin 27.8 pg (26.0-33.0) Mean Corpuscular Hemoglobin Concent 34.4 g/dL (32.0-36.0) Red Cell Distribution Width 18.8 % (11.5-14.5) Platelet Count 272 K/uL (150-450) Mean Platelet Volume 7.6 fL (7.2-11.1) Neutrophils (%) (Auto) 48.7 % (39.4-72.5) Lymphocytes (%) (Auto) 41.9 % (17.6-49.6) Monocytes (%) (Auto) 6.7 % (4.1-12.4) Eosinophils (%) (Auto) 2.0 % (0.4-6.7) Basophils (%) (Auto) 0.7 % (0.3-1.4) Nucleated RBC Relative Count (auto) 0.0 /100WBC Neutrophils # (Auto) 5.3 K/uL (2.0-7.4) Lymphocytes # (Auto) 4.5 K/uL (1.3-3.6) Monocytes # (Auto) 0.7 K/uL (0.3-1.0) Eosinophils # (Auto) 0.2 K/uL (0.0-0.5) Basophils # (Auto) 0.1 K/uL (0.0-0.1) Nucleated RBC Absolute Count (auto) 0.01 K/uL Peripheral Blood Smear No Y/N Glomerular Filtration Rate Calc > 60.0 Calcium Level 7.9 mg/dl (8.4-10.2) Total Bilirubin 0.2 mg/dl (0.2-1.3) Aspartate Amino Transf (AST/SGOT) 22 U/L (0-35) Alanine Aminotransferase (ALT/SGPT) 20 U/L (0-56) Alkaline Phosphatase 51 U/L (0-126) Total Protein 6.3 g/dl (6.3-8.2) Albumin 3.1 g/dl (3.5-5.0) (JUSTUS WOOTEN [facility]) ED Course/Re-evaluation ED Course The patient was admitted to room via EMS. An IV was started. A CBC, CMP and blood typing were obtained. CBC showing hemoglobin 11.1, hematocrit 32.3, chemistry unremarkable. Patient was given 1 L normal saline at 125 mils an hour , 4 mg IV morphine. I did speak with Dr. Mcclure as noted below, I did review the lab studies and my conversation with Dr. Mcclure with the patient. I did tell the patient that we can go ahead and redress the wound, send him home and he can follow up as scheduled with his home health nurse tomorrow morning if he has recurrent bleeding or any other concerns he'll return to the emergency department. The patient expressed understanding and was in agreement with this plan of care and discharged home. 11/26/2017 9:20:48 pm I did speak with Dr. Mirza, the surgeon on-call regarding the patient's case, with no active bleeding, stable H&H, stable vital signs and normotensive she does not feel that any interventions are warranted at this time. She suggested packing the wound and redressing the area to apply pressure to prevent recurrent bleeding. I did review the recommendations and the lab studies with the patient, the patient states he feels fine going home. Patient also has a home health nurse that will be coming and tomorrow morning to evaluate and change the dressing. I did tell the patient that if he begins to bleed again he can return at any time. Decision to Disposition Date: Nov 26, 2017 Decision to Disposition Time: 21:47 (JUSTUS WOOTEN-ROBERTO) Depart Departure Latest Vital Signs Vital Signs Date Time Temp Pulse Resp B/P (MAP) Pulse Ox O2 Delivery O2 Flow Rate FiO2 11/26/17 22:00 85 16 138/85 (102) 92 Room Air 11/26/17 19:56 98.7 (JUSTUS WOOTEN-ROBERTO) Impression: Primary Impression: Hidradenitis suppurativa Additional Impression: Wound, open, buttock Condition: Improved Disposition: HOME OR SELF-CARE Referrals: BRUNA ANDRE MD (PCP) 5 Days Patient Instructions: Acute Wound Care (ED), Hidradenitis Suppurativa (ED) Additional Instructions: Drink plenty of water. Get plenty of rest. Continue taking the medications as prescribed. Follow-up with Dr. Gonzales early next week for reevaluation. Continue to monitor the wound for infection and recurrent bleeding. If you have any other concerns or worsening symptoms return to the emergency department. Problem Qualifiers Additional Impression: Wound, open, buttock Encounter type: initial encounter Laterality: left Qualified Codes: S31.829A - Unspecified open wound of left buttock, initial encounter VIJI CUENCA DO Nov 26, 2017 20:00 JUSTUS WOOTEN Nov 26, 2017 20:07
[2017-11-26] MEDS ORDERED: NS(*) 0.9% 1000 ML BAG 1,000 ML IV ONE (20:15)
[2017-11-26] MEDS ORDERED: MORPHINE 4 MG/ML SDV IVP ONE (20:15)
[2017-11-26 20:30] LABS: PLATELET COUNT, AUTOMATED 272 K/uL (150-450)
[2017-11-26 22:00] VITALS: BP 138/85
== END 2017-11-26 22:12 | disposition home or self-care (01) ==
LOC: ER 19:59
DX: S31.829A Unspecified open wound of left buttock, initial encounter (principal); L73.2 Hidradenitis suppurativa
CPT/HCPCS: 85025; 86850; 86900; 86901; 96374; 99283; J2270; J7030; 82040; 82247; 82310; 82374; 82435; 82565; 82947; 84075; 84132; 84155; 84295; 84450; 84460; 84520

== ENCOUNTER → 2017-11-26 | Outpatient (CLI) | payer MEDICARE, MEDICAID ==
[2017-11-27 11:16] VITALS: BMI 25.8
== END ==
LOC: AMB 19:37
PROVIDERS: ATTEND Nurse Practitioner
DX: S31.809A Unspecified open wound of unspecified buttock, initial encounter (principal)
CPT/HCPCS: A0425; A0427

== ENCOUNTER 2017-11-27 00:37 | Observation (INO) | payer MEDICARE, MEDICAID ==
[2017-11-27] VITALS (7 sets, daily range): BP systolic 120–140; BP diastolic 64–86; Ht 167.6 cm; Wt 72.6 kg
[~2017-11-27] VITALS: Ht 167.6 cm; Wt 72.6 kg
[2017-11-27 01:27] LABS: PLATELET COUNT, AUTOMATED 286 K/uL (150-450)
[2017-11-27] MEDS ORDERED: NS(*) 0.9% 1000 ML BAG 1,000 ML IV ONE ×2 (01:30→03:40)
[2017-11-27] MEDS ORDERED: fentaNYL CITR 100 MCG/2 ML AMP IVP ONE (03:40)
[2017-11-27] MEDS ORDERED: HYDROmorphone* 1 MG/ML 1 MG/ML ML IVP ONE (04:20)
--- NOTE | 2017-11-27 04:20 | ER Report ---
History and Physical Time Seen By MD: 03:00 HPI/ROS CHIEF COMPLAINT: Hidradenitis with bleed from site HISTORY OF PRESENT ILLNESS: Patient is a 32-year-old male here with complaints of bleeding from his prior surgical site of hidradenitis. Patient is followed by Dr. Gonzales and has been taken for several procedures of the same region. He recently had a repeat procedure yesterday and came to the emergency department due to bleeding after at the time of the surgery. His hemoglobin was checked and was found to be 11 and the patient was sent home at that time because hemostasis was achieved. Patient returned due to recurrent bleeding and was found to have a hemoglobin of 9. Patient at this time was symptomatic with lightheadedness and weakness and pallor due to acute blood loss. Patient denies trauma, headache, blurred vision, chest, shortness breath, nausea, vomiting. REVIEW OF SYSTEMS: Constitutional: No fever, no chills. Eyes: No discharge. ENT: No sore throat. Cardiovascular: No chest pain, no palpitations. Respiratory: No cough, no shortness of breath. Gastrointestinal: No abdominal pain, no vomiting. Genitourinary: No hematuria. Musculoskeletal: No back pain. Skin: + post surgical site on gluteus and gluteal clefts with surrounding dried blood Neurological: No headache. Allergies: Coded Allergies: No Known Drug Allergies (Unverified , 08/09/17) Home Meds Active Scripts Docusate Sodium (COLACE) 100 Mg Capsule, 1 CAP PO BID, #30 CAP 0 Refills TAKE WITH A FULL GLASS OF WATER Prov:BRUNA ANDRE MD 11/25/17 Oxycodone Hcl/Acet 5/325 Mg (ENDOCET 5-325 TABLET) 1 Each Tablet, 1-2 TAB PO Q4H Y for PAIN, #30 TAB 0 Refills Prov:BRUNA ANDRE MD 11/25/17 Discontinued Scripts Doxycycline Hyclate (DOXYCYCLINE HYCLATE) 100 Mg Capsule, 100 MG PO BID, #14 CAPSULE 0 Refills Prov:KESHAWN MIMS MD 11/12/17 Hx Smoking: Yes Smoking Status: Current: Every Day Smoker Hx Substance Use Disorder: No Hx Alcohol Use: Yes Constitutional Vital Sign - Last 24 Hours 11/27/17 11/27/17 11/27/17 11/27/17 07:04 07:08 07:19 07:21 Pulse 73 82 B/P (MAP) 145/79 (101) 112/72 (85) Pulse Ox 95 95 11/27/17 07:30 B/P (MAP) 116/65 (82) Physical Exam General Appearance: The patient is alert, has no immediate need for airway protection and no signs of toxicity. No acute distress Eyes: Pupils equal and round no pallor or injection. ENT, Mouth: Mucous membranes are moist. Respiratory: There are no retractions, lungs are clear to auscultation. Cardiovascular: Regular rate and rhythm. Gastrointestinal: Abdomen is soft and non tender, no masses, bowel sounds normal. Neurological: No focal neurological deficits Skin: Warm and dry, + post op site with dried blood without active bleeding Musculoskeletal: Neck is supple non tender. Extremities are nontender, nonswollen and have full range of motion. DIFFERENTIAL DIAGNOSIS: After history and physical exam differential diagnosis was considered for postoperative bleed, infection, trauma Medical Decision Making Data Points Result Diagram: 11/28/17 0759 11/27/17 0120 Laboratory Hematology Test 11/27/17 01:14 11/27/17 01:20 11/27/17 05:02 Peripheral Blood Smear No Y/N Sodium Level 138 mmol/L (137-145) Potassium Level 3.4 mmol/L (3.5-5.0) Chloride Level 102 mmol/L (98-107) Carbon Dioxide Level 30 mmol/L (22-30) Blood Urea Nitrogen 13 mg/dl (9-21) Creatinine 0.80 mg/dl (0.66-1.25) Glomerular Filtration Rate Calc > 60.0 Random Glucose 110 mg/dl (75-110) Calcium Level 7.6 mg/dl (8.4-10.2) Total Bilirubin 0.2 mg/dl (0.2-1.3) Aspartate Amino Transf (AST/SGOT) 19 U/L (0-35) Alanine Aminotransferase (ALT/SGPT) 22 U/L (0-56) Alkaline Phosphatase 46 U/L (0-126) Total Protein 5.8 g/dl (6.3-8.2) Albumin 2.8 g/dl (3.5-5.0) Red Blood Count 3.05 M/uL (4.00-5.60) Mean Corpuscular Volume 82.3 fL (80.0-96.0) Mean Corpuscular Hemoglobin 27.6 pg (26.0-33.0) Mean Corpuscular Hemoglobin Concent 33.6 g/dL (32.0-36.0) Red Cell Distribution Width 19.1 % (11.5-14.5) Mean Platelet Volume 8.0 fL (7.2-11.1) Neutrophils (%) (Auto) 64.9 % (39.4-72.5) Lymphocytes (%) (Auto) 27.9 % (17.6-49.6) Monocytes (%) (Auto) 5.9 % (4.1-12.4) Eosinophils (%) (Auto) 0.9 % (0.4-6.7) Basophils (%) (Auto) 0.4 % (0.3-1.4) Nucleated RBC Relative Count (auto) 0.0 /100WBC Neutrophils # (Auto) 8.0 K/uL (2.0-7.4) Lymphocytes # (Auto) 3.4 K/uL (1.3-3.6) Monocytes # (Auto) 0.7 K/uL (0.3-1.0) Eosinophils # (Auto) 0.1 K/uL (0.0-0.5) Basophils # (Auto) 0.1 K/uL (0.0-0.1) Nucleated RBC Absolute Count (auto) 0.00 K/uL Chemistry Test 11/27/17 01:14 11/27/17 01:20 11/27/17 05:02 Peripheral Blood Smear No Y/N Glomerular Filtration Rate Calc > 60.0 Calcium Level 7.6 mg/dl (8.4-10.2) Total Bilirubin 0.2 mg/dl (0.2-1.3) Aspartate Amino Transf (AST/SGOT) 19 U/L (0-35) Alanine Aminotransferase (ALT/SGPT) 22 U/L (0-56) Alkaline Phosphatase 46 U/L (0-126) Total Protein 5.8 g/dl (6.3-8.2) Albumin 2.8 g/dl (3.5-5.0) White Blood Count 12.3 k/uL (4.5-11.0) Red Blood Count 3.05 M/uL (4.00-5.60) Mean Corpuscular Volume 82.3 fL (80.0-96.0) Mean Corpuscular Hemoglobin 27.6 pg (26.0-33.0) Mean Corpuscular Hemoglobin Concent 33.6 g/dL (32.0-36.0) Red Cell Distribution Width 19.1 % (11.5-14.5) Platelet Count 244 K/uL (150-450) Mean Platelet Volume 8.0 fL (7.2-11.1) Neutrophils (%) (Auto) 64.9 % (39.4-72.5) Lymphocytes (%) (Auto) 27.9 % (17.6-49.6) Monocytes (%) (Auto) 5.9 % (4.1-12.4) Eosinophils (%) (Auto) 0.9 % (0.4-6.7) Basophils (%) (Auto) 0.4 % (0.3-1.4) Nucleated RBC Relative Count (auto) 0.0 /100WBC Neutrophils # (Auto) 8.0 K/uL (2.0-7.4) Lymphocytes # (Auto) 3.4 K/uL (1.3-3.6) Monocytes # (Auto) 0.7 K/uL (0.3-1.0) Eosinophils # (Auto) 0.1 K/uL (0.0-0.5) Basophils # (Auto) 0.1 K/uL (0.0-0.1) Nucleated RBC Absolute Count (auto) 0.00 K/uL ED Course/Re-evaluation ED Course Patient is a 32-year-old male here with complaints of bleeding from a postoperative site which was operated on by Dr. Andre for hidradenitis yesterday. Patient came to the emergency department for active bleeding from the site which stopped with the time he got to the emergency department however he was found to have at that time a hemoglobin of 11. When he returned due to recurrent bleed he is found to have a hemoglobin of 9 though hemostasis was achieved, he was having lightheadedness, dizziness and pallor. I discussed the patient with Dr. Mcclure who came in to evaluate the patient's bedside and determined that operative reevaluation would be the best course moving forward. Patient labs were repeated and he was found to have hemoglobin of 8. Patient received 2 L of fluids and analgesia and remained stable during course of treatment. Patient remained hemodynamically stable throughout emergency Department treatment. Decision to Disposition Date: Nov 27, 2017 Decision to Disposition Time: 06:00 Depart Departure Latest Vital Signs Vital Signs Date Time Temp Pulse Resp B/P (MAP) Pulse Ox O2 Delivery O2 Flow Rate FiO2 11/27/17 07:30 116/65 (82) 11/27/17 07:19 82 95 Impression: Primary Impression: Postoperative bleeding from incision Additional Impression: Open wound Condition: Condition Unchanged Disposition: Admitted from ER Referrals: BRUNA ANDRE MD (PCP) Problem Qualifiers VIJI CUENCA DO Nov 27, 2017 04:20
[2017-11-27 05:54] LABS: PLATELET COUNT, AUTOMATED 244 K/uL (150-450)
[2017-11-27] MEDS ORDERED: PROPOFOL EMUL(*) 10MG/ML 20 ML 20 ML ONE (07:28)
[2017-11-27] MEDS ORDERED: LIDOCAINE MPF 1% 5 ML VIAL ONE (07:28)
[2017-11-27] MEDS ORDERED: SUGAMMADEX SOD 200 MG/2 ML SDV ONE (07:28)
[2017-11-27] MEDS ORDERED: DEXAMETHASONE SOD 4 MG/ML VIAL ONE (07:28)
[2017-11-27] MEDS ORDERED: fentaNYL CITR 250 MCG/5 ML AMP ONE (07:28)
[2017-11-27] MEDS ORDERED: ROCURONIUM BROM 10 MG/ML 10 ML ONE (07:28)
[2017-11-27] MEDS ORDERED: ONDANSETRON 4 MG/2 ML VIAL ONE ×2 (07:28→09:24)
[2017-11-27] MEDS ORDERED: KETAMINE HCL 200 MG/20 ML MDV ONE (07:32)
[2017-11-27] MEDS ORDERED: NORMOSOL R SOLN(*) 1000 ML BAG 1,000 ML IV ONE (07:51)
[2017-11-27] MEDS ORDERED: ROPIVACAINE 0.2% 20 ML VIAL ONE (08:26)
[2017-11-27] MEDS ORDERED: GELATIN SPONGE SZ 100 ONE (08:30)
[2017-11-27] MEDS ORDERED: fentaNYL CITR 100 MCG/2 ML AMP ONE (09:07)
[2017-11-27] MEDS ORDERED: FLUSH 10 ML SYR IVP PRN (09:25)
[2017-11-27] MEDS ORDERED: ONDANSETRON 4 MG/2 ML VIAL IVP PRN (09:30)
[2017-11-27] MEDS: APAP/HYDROCODONE 325/7.5 TAB PO PRN ×2 (11:55→17:51)
--- NOTE | 2017-11-27 13:49 | OPERATIVE REPORT 1 ---
EVENT DATE: November 27, 2017 SURGEON: Marni Mcclure MD ANESTHESIOLOGIST: Maciel Harrison MD ANESTHESIA: General endotracheal anesthesia. PREOPERATIVE DIAGNOSES 1. Bleeding from prior operative site. 2. Drop in hematocrit and hemoglobin. POSTOPERATIVE DIAGNOSES 1. Bleeding from prior operative site. 2. Drop in hematocrit and hemoglobin. 3. Minimal bleeding observed. PROCEDURE PERFORMED Exploration of operative wound, minimal bleeding observed. ESTIMATED BLOOD LOSS Minimal. FLUIDS Crystalloid 850 mL INDICATIONS This 32-year-old male has a long history of symptomatic hidradenitis. He recently underwent excision of hidradenitis on his left buttock 10/08. He presented to the ED yesterday with reports of a large volume of bleeding from his wound. This was examined by the ED physician and no active bleeding observed. He was discharged home, but then came back in early this morning with further bleeding by his report and a drop in his hemoglobin and hematocrit. He is admitted to Observation and taken to the operating room for exploration of the perineal wounds. DESCRIPTION OF PROCEDURE The patient was brought to the operating suite and placed in the supine position. General endotracheal anesthesia was induced without difficulty. The patient was then placed in the prone position with appropriate padding. The groin was prepped with Betadine scrub and paint. The patient was further then draped. Time out was performed documenting the proper patient in the prone position for exploration of the wound. Prophylactic antibiotics appropriately timed to surgery were administered. The wound was examined and the Bovie electrocautery used for any small bleeder that was apparent. They were actually very few bleeders observed at all and these were with minimal bleeding. There was an area on the right inner groin that had a little bit of clot, but no active bleeding. All of these were treated with Bovie electrocautery as well as one area with a suture ligature of 3-0 GI Vicryl suture. The wound was observed for quite some time with appropriate retraction placed, and no bleeding observed. The wound was then dressed on the right inner thigh with Gelfoam, Xeroform and Kerlix. The left buttock extending down toward the groin was dressed with Xeroform, a small bed of Gelfoam adjacent to the medial edge of the wound, Xeroform, and Kerlix. ABD was placed on the left buttock and surgical underwear applied. The patient was awakened and returned to PACU in stable condition. He tolerated his operative procedure well without complications. YASMINE
[2017-11-27] MEDS: MORPHINE 2 MG/ML SYR IVP PRN ×3 (14:15→21:39)
[2017-11-27] MEDS: NICOTINE 21 MG/24 HR PATCH TD SCH (21:00)
[2017-11-28 02:41] VITALS: BP 138/66
[2017-11-28] MEDS: MORPHINE 2 MG/ML SYR IVP PRN ×2 (04:29→09:30)
[2017-11-28 07:40] VITALS: BP 119/74
[2017-11-28] MEDS: NICOTINE 21 MG/24 HR PATCH TD SCH (08:33)
--- NOTE | 2017-11-28 09:47 | General Surgery Progress Note ---
Physical Exam Vital Signs Date Time Temp Pulse Resp B/P (MAP) Pulse Ox O2 Delivery O2 Flow Rate FiO2 11/28/17 07:40 97.9 74 12 119/74 (89) 94 Room Air 11/27/17 09:54 2.0 Intake and Output 11/29/17 06:59 Intake Total 120 ml Balance 120 ml Intake Oral 120 ml General Appearance: Alert, Awake, No Acute Distress Neuro: No Gross deficits Cardiovascular: Regular Rate and Rhythm Respiratory: No Respiratory Distress, Clear to Auscultation GI: Soft and Non-Tender, Other (Perineal wounds are examined. Dressings are original postoperative dressings and are without bleeding present. wounds are open, clean.) Result Diagram: 11/28/17 0759 11/27/17 0120 Assessment and Plan Problems: (1) Hidradenitis suppurativa Status: Chronic Assessment & Plan: S/P excision by Dr. Gonzales on . Dressing changes at home have been arranged with a visiting nurse service. The patient will call to re activate this for tomorrow. The patient should use the pain medications previously prescribed by Dr. Gonzales. Another prescription is NOT given to the patient at this time for pain medications. He is advised to take the pain medications 30" prior to the visiting nurse coming to his home for daily dressing changes. He should also call Dr. Gonzales's office in the morning to arrange a follow up visit with Dr. Gonzales who has been apprised of the events of the weekend. (2) Postoperative bleeding from incision Status: Acute Assessment & Plan: Patient has not evidenced any bleeding since surgery nor any obvious bleeding sites during surgery. Instructions are given to the patient regarding taking iron three times daily with meals. He is advised this will make his stools black. He is ambulating independently without weakness, dizziness or lightheadedness. It is re iterated to the patient not to take any anti inflammatories when he is discharged. Exam Sepsis Risk: No Definite Risk GENE RUBIO MD Nov 28, 2017 09:46
--- NOTE | 2017-11-28 09:54 | Short(Outpt) Discharge Summary ---
Discharge Summary Reason for Hosp/Final Diag: (1) Hidradenitis suppurativa Status: Chronic Hospital Course & Plan: S/P excision by Dr. Andre on . Dressing changes at home have been arranged with a visiting nurse service. The patient will call to re activate this for tomorrow. The patient should use the pain medications previously prescribed by Dr. Gonzales. Another prescription is NOT given to the patient at this time for pain medications. He is advised to take the pain medications 30" prior to the visiting nurse coming to his home for daily dressing changes. He should also call Dr. Gonzales's office in the morning to arrange a follow up visit with Dr. Gonzales who has been apprised of the events of the weekend. (2) Postoperative bleeding from incision Status: Acute Hospital Course & Plan: Patient has not evidenced any bleeding since surgery nor any obvious bleeding sites during surgery. Instructions are given to the patient regarding taking iron three times daily with meals. He is advised this will make his stools black. He is ambulating independently without weakness, dizziness or lightheadedness. It is re iterated to the patient not to take any anti inflammatories when he is discharged. Departure Discharge to: Home Health Discharge Instructions Home Meds Active Scripts Docusate Sodium (COLACE) 100 Mg Capsule, 1 CAP PO BID, #30 CAP 0 Refills TAKE WITH A FULL GLASS OF WATER Prov:BRUNA ANDRE MD 11/25/17 Oxycodone Hcl/Acet 5/325 Mg (ENDOCET 5-325 TABLET) 1 Each Tablet, 1-2 TAB PO Q4H Y for PAIN, #30 TAB 0 Refills Prov:BRUNA ANDRE MD 11/25/17 Discontinued Scripts Doxycycline Hyclate (DOXYCYCLINE HYCLATE) 100 Mg Capsule, 100 MG PO BID, #14 CAPSULE 0 Refills Prov:KESHAWN MIMS MD 11/12/17 Ketorolac Tromethamine (KETOROLAC TROMETHAMINE) 10 Mg Tab, 10 MG PO Q6H Y for PAIN, #12 TAB 0 Refills Prov:KESHAWN MIMS MD 11/12/17 Diet: Regular Activity: As Tolerated Special Instructions: Do not use any non steroidal medications such as ibuprofen, aleve, naprosyn, aspirin, etc. Please call Dr. Andre's office in the morning to schedule your postoperative visit. Re activate your outpatient dressing change schedule with home health care please. GENE RUBIO MD Nov 28, 2017 09:54
== END 2017-11-28 09:47 | disposition home or self-care (01) ==
LOC: ER 00:45 → OR 07:30 → MED 09:45
PROVIDERS: ADMIT Surgery; ATTEND Surgery
DX: L76.22 Postprocedural hemorrhage of skin and subcutaneous tissue following other procedure (principal); L73.2 Hidradenitis suppurativa
CPT/HCPCS: 17999; 36415; 85014; 85018; 85025; 96361; 96365; 96375; 99284; A9270; G0378; J1100; J1170; J2001; J2270; J2405; J2704; J2795; J3010; J3490; J7030; 82040; 82247; 82310; 82374; 82435; 82565; 82947; 84075; 84132; 84155; 84295; 84450; 84460; 84520

== ENCOUNTER → 2017-11-27 | Outpatient (CLI) | payer MEDICARE, MEDICAID ==
[2017-11-27 11:16] VITALS: BMI 25.8
== END ==
LOC: AMB 00:29
PROVIDERS: ATTEND Nurse Practitioner
DX: T81.31XA Disruption of external operation (surgical) wound, not elsewhere classified, initial encounter (principal); S31.809A Unspecified open wound of unspecified buttock, initial encounter; R53.1 Weakness; R11.0 Nausea
CPT/HCPCS: A0425; A0427

== ENCOUNTER 2017-12-04 20:57 | Emergency (ER) | payer MEDICARE, MEDICAID ==
[2017-11-27 11:16] VITALS: Wt 72.6 kg
[2017-12-04 20:58] VITALS: BP 149/98
--- NOTE | 2017-12-04 21:01 | ER Report ---
History and Physical Time Seen By MD: 21:01 Hx. of Stated Complaint: SNF CLEARANCE AND ETOH HPI/ROS CHIEF COMPLAINT: Prison clearance HISTORY OF PRESENT ILLNESS: 32-year-old male patient presents to emergency room with the [facility] with complaint of needing a physical for Prison clearance. Patient was downtown, he had been drinking. He did run into his child support officer. Several officer noted that he been drinking and that that was against his parole. Please recontact and patient was rest. He was brought here for evaluation. Patient is 2 weeks status post surgery for skin condition. Patient states he is having a fair amount of drainage. He was having a home health nurse came in and change the dressings, however that is stopped approximately one week ago. He denies having any fevers, chills, nausea, vomiting and diarrhea. Allergies: Coded Allergies: No Known Drug Allergies (Unverified , 12/04/17) Home Meds Discontinued Scripts Docusate Sodium (COLACE) 100 Mg Capsule, 1 CAP PO BID, #30 CAP 0 Refills TAKE WITH A FULL GLASS OF WATER Prov:BRUNA ANDRE MD 11/25/17 Oxycodone Hcl/Acet 5/325 Mg (ENDOCET 5-325 TABLET) 1 Each Tablet, 1-2 TAB PO Q4H Y for PAIN, #30 TAB 0 Refills Prov:BRUNA ANDRE MD 11/25/17 Past Medical/Surgical History Patient has a past medical history of left shoulder dislocation, hidradenitis suppurativa, alcohol use. Patient has surgical history of hernia repair, multiple surgeries for skin condition. Reviewed Nurses Notes: Yes Hx Smoking: Yes Smoking Status: Current: Every Day Smoker Hx Substance Use Disorder: No Hx Alcohol Use: Yes Constitutional Vital Sign - Last 24 Hours 12/04/17 20:58 Temp 98.5 Pulse 106 Resp 16 B/P (MAP) 149/98 Pulse Ox 93 O2 Delivery Room Air Physical Exam General appearance: Alert no distress. Respiratory: Chest is non tender, lungs are clear to auscultation. Cardiac: Regular rate and rhythm. Skin: Patient does have open wounds that are oozing. There is no erythema or redness that was noted. DIFFERENTIAL DIAGNOSIS: After history and physical exam differential diagnosis was considered for shelter clearance, surgical wounds, alcohol intoxication. Medical Decision Making ED Course/Re-evaluation ED Course Patient was admitted in exam room, history of physical were obtained. Differential diagnoses were considered. On examination lungs are clear, heart is regular. Patient does have some wounds from surgery that are draining. There is no bleeding noted, there is no erythema or redness. I discussed with patient I would like and follow-up the nurses at the group home center for dressing changes. Patient is to follow-up with his primary care provider as previous schedule. Patient is to return to emergency room if condition worsens. Patient verbalized understanding and agreement with plan. Decision to Disposition Date: Dec 04, 2017 Decision to Disposition Time: 21:10 Depart Departure Latest Vital Signs Vital Signs Date Time Temp Pulse Resp B/P (MAP) Pulse Ox O2 Delivery O2 Flow Rate FiO2 12/04/17 20:58 98.5 106 16 149/98 93 Room Air Impression: Primary Impression: Medical clearance for incarceration Additional Impression: Intoxication Condition: Improved Disposition: [facility] TO SNF/CORRECTIONAL F Referrals: BRUNA ANDRE MD (PCP) Patient Instructions: Alcohol Intoxication (ED) Additional Instructions: Follow up with the health care in the [facility] for dressing changes or any other health care concerns. Limit activity by pain. Increase fluid intake. Get plenty of rest. Problem Qualifiers LORENA HYMAN Dec 04, 2017 21:01
== END 2017-12-04 21:27 ==
LOC: ER 21:09
DX: F10.120 Alcohol abuse with intoxication, uncomplicated (principal)
CPT/HCPCS: 99281

== ENCOUNTER 2018-02-10 12:48 | Emergency (ER) | payer MEDICARE, MEDICAID ==
[2017-11-27 11:16] VITALS: Wt 72.6 kg
[2018-02-10] MEDS ORDERED: HYDR-385 PO (13:17)
[2018-02-10] MEDS ORDERED: AMOX500T10 PO (13:17)
--- NOTE | 2018-02-10 13:19 | ER Report ---
History and Physical Time Seen By MD: 13:04 Hx. of Stated Complaint: LEFT LOWER MOUTH PAIN HPI/ROS CHIEF COMPLAINT: Dental pain HISTORY OF PRESENT ILLNESS: 33-year-old male patient presents to emergency room with complaint of dental pain. Patient states that he's been having pain now for the past several days. Patient has pain to the left lower jaw, he is also noticed some swelling. States that he is eating okay as long as he chews on the right side, however if he chews on left side he will have significant pain. Patient states he is aware that he has poor dentition and needs follow-up with [facility]. He has tried contacts and dentis, however they do not take Medicaid. Patient denies any fevers, chills, nausea, vomiting or diarrhea. Allergies: Coded Allergies: No Known Drug Allergies (Unverified , 02/10/18) Home Meds Active Scripts Hydrocodone Bit/Acetaminophen (HYDROCODON-ACETAMINOPHEN 5-325) 1 Each Tablet, 1 EACH PO Q4-6H PRN for PAIN, #8 TAB Prov:LORENA HYMAN 02/10/18 Amoxicillin 500 Mg Tab (AMOXICILLIN 500 MG TAB) 500 Mg Tablet, 1 TAB PO Q8H, #30 TAB Prov:LORENA HYMAN 02/10/18 Past Medical/Surgical History Patient has a past medical history of left shoulder dislocation, hidradenitises suppurative, alcohol use. Patient has surgical history of hernia repair, surgery for skin condition. Reviewed Nurses Notes: Yes Hx Smoking: Yes Smoking Status: Current: Every Day Smoker Hx Substance Use Disorder: No Hx Alcohol Use: Yes Constitutional Vital Sign - Last 24 Hours 02/10/18 02/10/18 12:54 13:26 Temp 97.8 Pulse 102 100 Resp 16 16 B/P (MAP) 143/87 130/110 (117) Pulse Ox 94 94 O2 Delivery Room Air Room Air Physical Exam General appearance: Alert no distress. Respiratory: Chest is non tender, lungs are clear to auscultation. Cardiac: Regular rate and rhythm. ENT: Teeth are in poor repair, he has several caries, he has multiple teeth are broken down at the gumline. Patient does have tenderness along left-sided jaw, he also has moderate swelling to the left cheek. DIFFERENTIAL DIAGNOSIS: After history and physical exam differential diagnosis was considered for dental abscess, dental infection. Medical Decision Making ED Course/Re-evaluation ED Course Patient was admitted and examined, history and physical were obtained. Differential diagnoses were considered. On examination patient does have swelling to the left cheek, he has several teeth are broken off the gumline and several caries. Patient's rates his pain an 8 out of 10. We will go ahead and start him on amoxicillin as well as lumbar spine pain medication. He is follow- up with a dentist. I did give him information for her dentist in [place] which does except medicate. I discussed this with patient who verbalized understanding and agreement with plan. Decision to Disposition Date: Feb 10, 2018 Decision to Disposition Time: 13:10 Depart Departure Latest Vital Signs Vital Signs Date Time Temp Pulse Resp B/P (MAP) Pulse Ox O2 Delivery O2 Flow Rate FiO2 02/10/18 13:26 100 16 130/110 (117) 94 Room Air 02/10/18 12:54 97.8 Impression: Primary Impression: Toothache Condition: Improved Disposition: HOME OR SELF-CARE Referrals: BRUNA ANDRE MD (PCP) New Scripts Hydrocodone Bit/Acetaminophen (HYDROCODON-ACETAMINOPHEN 5-325) 1 Each Tablet 1 EACH PO Q4-6H PRN for PAIN, #8 TAB Prov: LORENA HYMAN 02/10/18 Amoxicillin 500 Mg Tab (AMOXICILLIN 500 MG TAB) 500 Mg Tablet 1 TAB PO Q8H, #30 TAB Prov: LORENA HYMAN 02/10/18 Patient Instructions: Toothache (ED) Additional Instructions: You may take Ibuoprofen in addition to the pain medication as needed for pain. Rinse mouth with warm salt water after every meal. Eat soft foods. Follow up with your dentist as soon as possible, call to make an appointment. Return to the ER if condition worsens. Dentist that accepts Medicaid: Vito Neri [id number] LORENA HYMAN Feb 10, 2018 13:18
[2018-02-10 13:26] VITALS: BP 130/110
== END 2018-02-10 13:27 | disposition home or self-care (01) ==
LOC: ER 12:58
DX: K08.89 Other specified disorders of teeth and supporting structures (principal)
CPT/HCPCS: 99281

== ENCOUNTER 2018-02-12 13:45 | Emergency (ER) | payer MEDICARE, MEDICAID ==
[2017-11-27 11:16] VITALS: BMI 25.8
[~2018-02-12 13:45] MED LIST changes: +AMOX500T10 PO; +HYDR-385 PO
--- NOTE | 2018-02-12 13:51 | ER Report ---
History and Physical Time Seen By MD: 13:50 HPI/ROS CHIEF COMPLAINT: Dental pain HISTORY OF PRESENT ILLNESS: This is a 33-year-old male who presents to the emergency department for recurrent dental pain. Patient was evaluated in the emergency department 2 days ago for dental pain, was given a prescription for amoxicillin and hydrocodone. Patient states that his pain is increased, thinks that the swelling has increased to the left side of his mouth. Denies fevers or chills. No nausea or vomiting. He will take fluids, states it's increasingly difficult to chew food. Patient states that he was not able to get over to [place] to follow-up with the dentist, states he does not have a ride, has no other way of getting to the [place] dentist which he takes Medicaid. REVIEW OF SYSTEMS: Respiratory: No cough, no dyspnea. Cardiovascular: No chest pain, no palpitations. Gastrointestinal: No vomiting, no abdominal pain. Musculoskeletal: No back pain. Dental: As well. Allergies: Coded Allergies: No Known Drug Allergies (Unverified , 02/10/18) Home Meds Active Scripts Cyclobenzaprine Hcl (CYCLOBENZAPRINE HCL) 10 Mg Tablet, 5-10 MG PO TID PRN for MUSCLE SPASMS, #9 TAB 0 Refills Prov:JUSTUS WOOTEN [facility]- 02/12/18 Amoxicillin/Pot Clav 875-125 Mg Tab (AUGMENTIN 875-125 TABLET) 1 Each Tablet, 1 TAB PO Q12H for 7 Days, #14 TAB 0 Refills Prov:JUSTUS WOOTEN [facility]- 02/12/18 Hydrocodone Bit/Acetaminophen (HYDROCODON-ACETAMINOPHEN 5-325) 1 Each Tablet, 1 EACH PO Q4-6H PRN for PAIN, #8 TAB Prov:LORENA HYMAN [facility] 02/10/18 Amoxicillin 500 Mg Tab (AMOXICILLIN 500 MG TAB) 500 Mg Tablet, 1 TAB PO Q8H, #30 TAB Prov:LORENA HYMAN [facility] 02/10/18 Past Medical/Surgical History The patient has a past medical and surgical history of left shoulder dislocation, hidradenitis suppurativa, hernia repair. Reviewed Nurses Notes: Yes Hx Smoking: Yes Smoking Status: Current: Every Day Smoker Hx Substance Use Disorder: No Hx Alcohol Use: Yes Constitutional Vital Sign - Last 24 Hours 02/12/18 02/12/18 13:49 14:19 Temp 98.6 Pulse 107 87 Resp 20 20 B/P (MAP) 156/97 142/87 (105) Pulse Ox 95 94 O2 Delivery Room Air Room Air Physical Exam General Appearance: The patient is alert, has no immediate need for airway protection and no current signs of toxicity. Eyes: Pupils equal and round no injection. Dental: Poor dentition, multiple dental caries, missing teeth, poor gingiva throughout the mouth. Some erythema and swelling noted to the left lower outer gumline as well as the left upper outer gumline. No crepitus. Respiratory: Chest is non tender, lungs are clear to auscultation. Cardiac: regular rate and rhythm. Gastrointestinal: Abdomen is soft and non tender, no masses, bowel sounds normal. Musculoskeletal: Neck: Neck is supple and non tender. Extremities have full range of motion and are non tender. Skin: No rashes or lesions. DIFFERENTIAL DIAGNOSIS: After history and physical exam differential diagnosis was considered for dental caries, dental abscess. Medical Decision Making ED Course/Re-evaluation ED Course The patient was admitted to a room. History of physical were obtained. Differential diagnoses were considered. I did change the patient's medication from amoxicillin to Augmentin, was given Flexeril and instructed to take high- dose Tylenol for the inflammation. Patient was also encouraged to call to try to get his dental appointment next week. Patient states he'll call however he does not think agreeable to get there until February. I didn't recommend a CT, patient declined at this time. The patient had no other questions or concerns at this time and discharged home. Decision to Disposition Date: Feb 12, 2018 Decision to Disposition Time: 14:08 Depart Departure Latest Vital Signs Vital Signs Date Time Temp Pulse Resp B/P (MAP) Pulse Ox O2 Delivery O2 Flow Rate FiO2 02/12/18 14:19 87 20 142/87 (105) 94 Room Air 02/12/18 13:49 98.6 Impression: Primary Impression: Toothache Condition: Improved Disposition: HOME OR SELF-CARE Referrals: BRUNA ANDRE MD (PCP) New Scripts Cyclobenzaprine Hcl (CYCLOBENZAPRINE HCL) 10 Mg Tablet 5-10 MG PO TID PRN for MUSCLE SPASMS, #9 TAB 0 Refills Prov: JUSTUS WOOTEN [facility] 02/12/18 Amoxicillin/Pot Clav 875-125 Mg Tab (AUGMENTIN 875-125 TABLET) 1 Each Tablet 1 TAB PO Q12H for 7 Days, #14 TAB 0 Refills Prov: JUSTUS [facility]OTENBC 02/12/18 Patient Instructions: Dental Abscess (ED), Dental Caries (ED) Additional Instructions: Please use the information provided to you two days ago and contact the dentist in [place] that does accept medicaid. Stop taking the amoxicillin and start taking the Augmentin. This is only a temporary solution, you must follow up with the dentist. Try the Flexeril for pain. Take the ibuprofen with the Flexeril to see if this combination helps. Drink plenty of fluids. Get plenty of rest. If you change your mind about the CT scan please return to the ED. JUSTUS WOOTEN [facility] Feb 12, 2018 13:50
[2018-02-12] MEDS ORDERED: AMOX-559 PO (14:09)
[2018-02-12] MEDS ORDERED: CYCL10TA29 PO (14:09)
[2018-02-12 14:19] VITALS: BP 142/87
== END 2018-02-12 14:20 | disposition home or self-care (01) ==
LOC: ER 14:03
DX: K08.89 Other specified disorders of teeth and supporting structures (principal); F17.210 Nicotine dependence, cigarettes, uncomplicated
CPT/HCPCS: 99281

== ENCOUNTER 2018-03-14 12:42 | Emergency (ER) | payer MEDICARE, MEDICAID ==
[2017-11-27 11:16] VITALS: BMI 25.8
[~2018-03-14 12:42] MED LIST changes: +AMOX-559 PO; +CYCL10TA29 PO
--- NOTE | 2018-03-14 12:55 | ER Report ---
History and Physical Time Seen By MD: 12:55 HPI/ROS 33-year-old male with a history of drug use and equal in dental infections. He is on probation here in [place], and states he cannot leave the town limits to seek dental care in [place]. His probation is up April 09. He was on antibiotics approximately 2 weeks ago which helped with his dental pain. His pain has returned. No trismus. No fever or chills. Allergies: Coded Allergies: No Known Drug Allergies (Unverified , 02/10/18) Home Meds Active Scripts Clindamycin Hcl (CLINDAMYCIN HCL) 300 Mg Capsule, 300 MG PO Q6H, #40 CAPSULE Prov:WINTER PRINGLE MD 03/14/18 Discontinued Scripts Cyclobenzaprine Hcl (CYCLOBENZAPRINE HCL) 10 Mg Tablet, 5-10 MG PO TID PRN for MUSCLE SPASMS, #9 TAB 0 Refills Prov:JUSTUS WOOTEN [facility]- 02/12/18 Amoxicillin/Pot Clav 875-125 Mg Tab (AUGMENTIN 875-125 TABLET) 1 Each Tablet, 1 TAB PO Q12H for 7 Days, #14 TAB 0 Refills Prov:JUSTUS WOOTEN [facility]- 02/12/18 Hydrocodone Bit/Acetaminophen (HYDROCODON-ACETAMINOPHEN 5-325) 1 Each Tablet, 1 EACH PO Q4-6H PRN for PAIN, #8 TAB Prov:LORENA HYMAN [facility] 02/10/18 Amoxicillin 500 Mg Tab (AMOXICILLIN 500 MG TAB) 500 Mg Tablet, 1 TAB PO Q8H, #30 TAB Prov:LORENA HYMAN [facility] 02/10/18 Hx Smoking: Yes Smoking Status: Current: Every Day Smoker Hx Substance Use Disorder: No Hx Alcohol Use: Yes Constitutional Vital Sign - Last 24 Hours 03/14/18 03/14/18 13:00 13:00 Temp 97.0 Pulse 94 93 Resp 20 B/P (MAP) 140/99 (113) 140/99 Pulse Ox 94 92 O2 Delivery Room Air Room Air Physical Exam General Appearance: Alert, no distress. Eyes: Pupils equal and round no pallor or injection. ENT, Mouth: Multiple infected dental caries. No evidence of abscess. No trismus Nose: No bleeding. Mouth: Mucous membranes are moist. Throat: No erythema or exudates there is no tonsillar hypertrophy and uvula is midline. Musculoskeletal: Neck is supple non tender, no adenopathy. Skin: Warm and dry, no rashes. DIFFERENTIAL DIAGNOSIS: After history and physical exam differential diagnosis was considered for dental caries, abscess, ludwigs angina Medical Decision Making ED Course/Re-evaluation ED Course Uncomplicated but multiple infected dental caries likely secondary to chronic drug use. Already has contact information for a dental clinic in [place]. We'll make appointment for dental follow-up. We'll place him on clindamycin in the meantime. Decision to Disposition Date: Mar 14, 2018 Decision to Disposition Time: 13:00 Depart Departure Latest Vital Signs Vital Signs Date Time Temp Pulse Resp B/P (MAP) Pulse Ox O2 Delivery O2 Flow Rate FiO2 03/14/18 13:00 93 20 140/99 92 Room Air 03/14/18 13:00 97.0 Impression: Primary Impression: Infected dental caries Condition: Improved Disposition: HOME OR SELF-CARE Referrals: BRUNA ANDRE MD (PCP) New Scripts Clindamycin Hcl (CLINDAMYCIN HCL) 300 Mg Capsule 300 MG PO Q6H, #40 CAPSULE Prov: WINTER PRINGLE MD 03/14/18 Patient Instructions: Dental Caries (ED) WINTER PRINGLE MD Mar 14, 2018 12:55
[2018-03-14 13:00] VITALS: BP 140/99
[2018-03-14] MEDS ORDERED: CLIN300C99 PO (13:06)
== END 2018-03-14 13:17 | disposition home or self-care (01) ==
LOC: ER 12:42
DX: K02.9 Dental caries, unspecified (principal)
CPT/HCPCS: 99281

== ENCOUNTER 2018-04-13 09:58 | Emergency (ER) | payer MEDICARE, MEDICAID ==
[2017-11-27 11:16] VITALS: Wt 73.9 kg
[~2018-04-13 09:58] MED LIST changes: +CLIN300C99 PO
[2018-04-13] MEDS ORDERED: ONDANSETRON 4 MG/2 ML VIAL IVP ONE (10:15)
[2018-04-13] MEDS ORDERED: GLYCOPYRROLATE 0.2MG/ML 1 ML INJ IVP ONE (10:15)
[2018-04-13] MEDS ORDERED: NS(*) 0.9% 1000 ML BAG 1,000 ML IV ONE (10:15)
--- NOTE | 2018-04-13 10:17 | ER Report ---
History and Physical Time Seen By MD: 10:10 Hx. of Stated Complaint: PT THINKS HE ATE SOME BAD CHICKEN. STATES HE HAS HAD AROUND 15 BM'S SINCE 3AM. IS HAVING SEVERE ABDOMINAL PAIN HPI/ROS CHIEF COMPLAINT: Diarrhea HISTORY OF PRESENT ILLNESS: Patient states he ate chicken last night about 10 PM. He thinks the chicken may have been bad as he started having bloating overnight. At 3 AM he began having nonbloody nonblack diarrhea and reports about 15 episodes. He now has intermittent crampy pain rating throughout abdomen that is moderately severe. He is vomited once. He has mild nausea. He has muscle aches and pains. He has no fevers or chills. He's never had symptoms like this before. He has no ongoing medical problems or allergies. REVIEW OF SYSTEMS: Constitutional: No fever, no chills. Eyes: No discharge. ENT: No sore throat. Cardiovascular: No chest pain, no palpitations. Respiratory: No cough, no shortness of breath. Gastrointestinal: above Genitourinary: no dysuria Musculoskeletal: No back pain. Skin: No rashes. Neurological: No headache. Remainder of the 14 system rev: Yes Allergies: Coded Allergies: No Known Drug Allergies (Unverified , 02/10/18) Home Meds Active Scripts Ondansetron Hcl (ZOFRAN) 4 Mg Tablet, 4 MG PO Q8H for Nausea, #10 TAB Prov:CHAN PRINGLE MD 04/13/18 Dicyclomine Hcl (DICYCLOMINE HCL) 20 Mg Tablet, 20 MG PO QID for PAIN, #20 TAB Prov:CHAN PRINGLE MD 04/13/18 Discontinued Scripts Clindamycin Hcl (CLINDAMYCIN HCL) 300 Mg Capsule, 300 MG PO Q6H, #40 CAPSULE Prov:WINTER PRINGLE MD 03/14/18 Hx Smoking: Yes Smoking Status: Current: Every Day Smoker Hx Substance Use Disorder: No Hx Alcohol Use: Yes Constitutional Vital Sign - Last 24 Hours 04/13/18 04/13/18 04/13/18 04/13/18 10:03 10:03 10:30 11:00 Temp 97.6 Pulse 92 88 88 Resp 18 B/P (MAP) 137/98 (111) 137/98 130/94 (106) 125/83 (97) Pulse Ox 97 93 93 O2 Delivery Room Air Physical Exam General Appearance: The patient is alert, has no immediate need for airway protection and no signs of toxicity. Eyes: Pupils equal and round no pallor or injection. ENT, Mouth: Mucous membranes are moist. Respiratory: There are no retractions, lungs are clear to auscultation. Cardiovascular: Regular rate and rhythm. Gastrointestinal: abdomen is soft, mildly tender throughout, hyperactive bowel sounds Neurological: alert, oriented Skin: Warm and dry, no rashes. Musculoskeletal: Extremities are nontender, nonswollen and have full range of motion. DIFFERENTIAL DIAGNOSIS: After history and physical exam differential diagnosis was considered for abdominal pain including but not limited to appendicitis, cholecystitis, obstruction, gastritis and urinary tract infection. Medical Decision Making ED Course/Re-evaluation Clinical Indication for ER IV: Hydration ED Course Patient presents with signs and symptoms of gastroenteritis likely toxic. I considered other more emergent etiologies but symptoms and findings are consistent with this diagnosis. Patient significantly symptomatically improved after ED evaluation and tolerates by mouth. DC with strict return precautions Decision to Disposition Date: Apr 13, 2018 Decision to Disposition Time: 11:21 Depart Departure Latest Vital Signs Vital Signs Date Time Temp Pulse Resp B/P (MAP) Pulse Ox O2 Delivery O2 Flow Rate FiO2 04/13/18 11:00 88 125/83 (97) 93 04/13/18 10:03 97.6 18 Room Air Impression: Primary Impression: Diarrhea Condition: Improved Disposition: HOME OR SELF-CARE Referrals: BRUNA ANDRE MD (PCP) New Scripts Ondansetron Hcl (ZOFRAN) 4 Mg Tablet 4 MG PO Q8H for Nausea, #10 TAB Prov: CHAN PRINGLE MD 04/13/18 Dicyclomine Hcl (DICYCLOMINE HCL) 20 Mg Tablet 20 MG PO QID for PAIN, #20 TAB Prov: CHAN PRINGLE MD 04/13/18 Patient Instructions: Gastroenteritis (ED) Additional Instructions: Return for uncontrolled pain, unable to tolerate fluids, or any concerns. Problem Qualifiers Primary Impression: Diarrhea Diarrhea type: unspecified type Qualified Codes: R19.7 - Diarrhea, unspecified CHAN PRINGLE MD Apr 13, 2018 10:17
[2018-04-13 11:00] VITALS: BP 125/83
[2018-04-13] MEDS ORDERED: ONDA4TAB97 PO (11:24)
[2018-04-13] MEDS ORDERED: DICY20TA70 PO (11:24)
== END 2018-04-13 11:35 | disposition home or self-care (01) ==
LOC: ER 10:14
DX: R19.7 Diarrhea, unspecified (principal)
CPT/HCPCS: 96374; 96375; 99284; J2405; J3490; J7030

== ENCOUNTER 2018-06-09 02:44 | Day surgery (SDC) | payer MEDICARE, MEDICAID ==
[2017-11-27 11:16] VITALS: Ht 167.6 cm; Wt 65.8 kg
[~2018-06-09] VITALS: Ht 167.6 cm; Wt 65.8 kg
[~2018-06-09 02:44] MED LIST changes: +DICY20TA70 PO; +IBUP-136 PO; +ONDA4TAB97 PO
[2018-06-09] MEDS ORDERED: LIDOCAINE MPF 1% 5 ML VIAL ONE (09:29)
[2018-06-09] MEDS ORDERED: DEXAMETHASONE SOD 4 MG/ML VIAL ONE (09:29)
[2018-06-09] MEDS ORDERED: fentaNYL CITR 250 MCG/5 ML AMP ONE (09:29)
[2018-06-09] MEDS ORDERED: ONDANSETRON 4 MG/2 ML VIAL ONE (09:29)
[2018-06-09] MEDS ORDERED: SUGAMMADEX SOD 200 MG/2 ML SDV ONE (09:29)
[2018-06-09] MEDS ORDERED: ROCURONIUM BROM 10 MG/ML 10 ML ONE (09:29)
[2018-06-09] MEDS ORDERED: PROPOFOL EMUL(*) 10MG/ML 20 ML 20 ML ONE (09:29)
[2018-06-09] MEDS ORDERED: KETAMINE HCL 200 MG/20 ML MDV ONE (09:30)
[2018-06-09] MEDS: NORMOSOL R SOLN(*) 1000 ML BAG 1,000 ML IV PRN ×2 (09:47→13:30)
[2018-06-09] MEDS ORDERED: FAMOTIDINE 20 MG TAB PO ONE (10:00)
[2018-06-09] MEDS ORDERED: MIDAZOLAM 2 MG/2 ML VIAL IVP PRN (10:00)
[2018-06-09] MEDS ORDERED: ceFAZolin(*) 2GM/D5W 50ML 50 ML IVPB ONE (10:00)
[2018-06-09] MEDS ORDERED: LIDOCAINE/SOD BICARB 8.4% SYR ID ONE (10:00)
[2018-06-09] MEDS ORDERED: ROPIVACAINE 0.5% 20 ML VIAL ONE (10:10)
[2018-06-09] MEDS ORDERED: NEOMYCIN/POLYMYX/BACITR 30 GM TP ONE (10:10)
[2018-06-09 10:23] VITALS: BP 135/88
[2018-06-09 10:24] LABS: PLATELET COUNT, AUTOMATED 294 K/uL (150-450)
[2018-06-09] MEDS ORDERED: fentaNYL CITR 100 MCG/2 ML AMP ONE ×2 (13:10→13:43)
[2018-06-09] MEDS ORDERED: OXYC-854 PO (13:17)
[2018-06-09] MEDS ORDERED: DOCU-416 PO (13:17)
--- NOTE | 2018-06-09 13:20 | Short(Outpt) Discharge Summary ---
Discharge Summary Reason for Hosp/Final Diag: (1) Hidradenitis suppurativa Status: Chronic Hospital Course & Plan: Bilateral buttock hidradenitis excision completed without problems. Departure Discharge to: Home, Self Care Discharge Instructions Home Meds Active Scripts Docusate Sodium (COLACE) 100 Mg Capsule, 1 CAP PO BID, #30 CAP 0 Refills TAKE WITH A FULL GLASS OF WATER Prov:BRUNA ANDRE MD 06/09/18 Oxycodone Hcl/Acet 5/325 Mg (ENDOCET 5-325 TABLET) 1 Each Tablet, 1-2 TAB PO Q4H PRN for PAIN, #30 TAB 0 Refills Prov:BRUNA ANDRE MD 06/09/18 Reported Medications Ibuprofen (IBUPROFEN) 200 Mg Capsule, 2 CAP PO Q6H PRN for PAIN, CAPSULE 04/29/18 Follow up Referrals: General Surgery - 06/13/18 @ Surgery, General with BRUNA ANDRE MD You have a follow up appointment scheduled with Dr. Andre on 06/13/18, at 4:30pm. Diet: Regular Activity: As Tolerated Special Instructions: You may leave the current dressing in place until 06/11/18, then you can remove it and shower as desired. Starting 06/13/18, change the dressing daily as you have after previous surgeries. BRUNA ANDRE MD Jun 09, 2018 13:20
--- NOTE | 2018-06-09 13:24 | Post Operative Progress Note ---
Post Operative Progress Note Date: Jun 09, 2018 Time: 13:20 Surgeon: Mckinley Dictation number: [id number] Anesthesia: LMA by Dr. Flores Pre-Op Diagnosis: Bilateral buttock hidradenitis Post-Op Diagnosis: ERNA Findings: C/W dx Procedure(s): Bilateral buttock hidradenitis excision Specimen Removed:(May be N/A): Hidradenitis, buttock Complications: None Fluids: See anesthesia record Estimated Blood Loss: Minimal Date OP Note Dictated: Jun 09, 2018 Time OP Note Dictated: 13:21 BRUNA ANDRE MD Jun 09, 2018 13:24
[2018-06-09] MEDS ORDERED: ALBUTEROL/IPRATROPIUM 3 ML NEB ONE (13:29)
[2018-06-09 14:00] VITALS: BP 129/92
--- NOTE | 2018-06-09 14:06 | OPERATIVE REPORT 1 ---
EVENT DATE: June 09, 2018 SURGEON: Jose Sen M.D. ANESTHESIOLOGIST: Maciel Harrison MD ANESTHESIA: LMA. PREOPERATIVE DIAGNOSIS Bilateral buttock hidradenitis. POSTOPERATIVE DIAGNOSIS Bilateral buttock hidradenitis. PROCEDURE PERFORMED Excision of bilateral buttock hidradenitis. COMPLICATIONS None. CONDITION Stable. ESTIMATED BLOOD LOSS Minimal. INDICATIONS This is a 33-year-old gentleman with a long history of bilateral buttock hidradenitis. I performed extensive excisions twice in the past, one from his right buttock and one from his left buttock, and this disease has greatly improved but he has a couple of small areas of continuous drainage and pain and he was requesting to have some further excision. DESCRIPTION OF PROCEDURE The patient was brought into the operating room and LMA anesthesia was administered on the gurney and then he was rolled into a prone mic-knife position on the table. His buttocks were prepped and draped in sterile fashion. Time-out was completed. I used a sinus duct probe and I intubated the openings and found where the cavities were. I then anesthetized the skin around these openings and then excised the sinus tracts until I could not find anymore sinus tract to excise. I essentially ended up with a wound that started on his right medial buttock and went up over the top of the gluteal cleft and then down the left side of his medial left buttock. After it was all completed, I made sure it was hemostatic with electrocautery and packed the wound with moist 4 x 4 gauze and then covered with dry gauze and then an ABD pad, which was taped into place. The patient was then rolled back supine on the gurney and he was awakened, LMA removed and transferred to the recovery room in stable condition, having tolerated the procedure without any apparent problems. YASMINE
[2018-06-09 14:15] VITALS: BP 135/69
[2018-06-09 14:21] VITALS: BP 135/69
[2018-06-09 14:27] VITALS: BP 127/97
== END 2018-06-09 14:00 | disposition home or self-care (01) ==
LOC: OR 02:44
PROVIDERS: ATTEND Surgery
DX: L73.2 Hidradenitis suppurativa (principal)
CPT/HCPCS: 11470; 36415; 85025; 88305; 94640; A9270; J1100; J2001; J2250; J2405; J2704; J2795; J3010; J3490; J7620; J0690

== ENCOUNTER 2018-06-10 07:43 | Emergency (ER) | payer MEDICARE, MEDICAID ==
[2017-11-27 11:16] VITALS: Wt 65.8 kg
--- NOTE | 2018-06-10 07:47 | ER Report ---
History and Physical Time Seen By MD: 07:46 HPI/ROS CHIEF COMPLAINT: Postoperative bleeding HISTORY OF PRESENT ILLNESS: The electronic medical record was reviewed for this patient. On 06/09/2018 patient had bilateral buttock hidradenitis abscesses incised and drained. Patient presents emergency department with complaint of pos toperative bleeding at this time. REVIEW OF SYSTEMS: Respiratory: [No cough, no dyspnea.] Cardiovascular: [No chest pain, no palpitations.] Gastrointestinal: [No vomiting, no abdominal pain.] Musculoskeletal: [No back pain.] Allergies: Coded Allergies: No Known Drug Allergies (Unverified , 02/10/18) Home Meds Active Scripts Docusate Sodium (COLACE) 100 Mg Capsule, 1 CAP PO BID, #30 CAP 0 Refills TAKE WITH A FULL GLASS OF WATER Prov:BRUNA ANDRE MD 06/09/18 Oxycodone Hcl/Acet 5/325 Mg (ENDOCET 5-325 TABLET) 1 Each Tablet, 1-2 TAB PO Q4H PRN for PAIN, #30 TAB 0 Refills Prov:BRUNA ANDRE MD 06/09/18 Discontinued Reported Medications Ibuprofen (IBUPROFEN) 200 Mg Capsule, 2 CAP PO Q6H PRN for PAIN, CAPSULE 04/29/18 Past Medical/Surgical History Hidradenitis Hx Smoking: Yes (1 [id number] X 17 YRS) Smoking Status: Current: Every Day Smoker Hx Substance Use Disorder: No Hx Alcohol Use: Yes Constitutional Vital Sign - Last 24 Hours 06/10/18 06/10/18 06/10/18 06/10/18 07:43 07:48 07:49 08:00 Temp 97.2 Pulse ??? 73 Resp 16 B/P (MAP) 120/79 120/79 (93) 126/89 (101) Pulse Ox 93 O2 Delivery Room Air 06/10/18 06/10/18 08:13 08:43 Pulse 65 Pulse Ox 95 93 Physical Exam General appearance: Alert no distress. Respiratory: Chest is non tender, lungs are clear to auscultation. Cardiac: Regular rate and rhythm Skin exam: Patient wearing a diaper with gauze dressing which is saturated with blood as well as clot. Taking the dressing down reveals that along the surgical site left buttock area there is a area of venous oozing. This will require cauterization and if bleeding persists we'll consider seizure Medical Decision Making ED Course/Re-evaluation ED Course 06/10/2018 8:06:39 am patient is postop day #1 from surgical excision of hidradenitis this morning began with postoperative bleeding patient has had similar complication in the past. In fact actually required going back to the operating room to control bleeding. Examination reveals a slow venous ooze that is continual silver nitrate cautery was initially tried with some fact however some bleeding continued we subsequently placed Surgicel coagulant dressing and held pressure. Bleeding seems to have stopped for the time being we'll continue to observe in the emergency department. We will also make Dr. Gonzales aware of patient's presentation today. 06/10/2018 8:44:31 am patient has been observed for him to stop 30 minutes with no further bleeding after Surgicel placement. I did speak with regarding the patient. 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 Gonzales can be consulted. Decision to Disposition Date: Jun 10, 2018 Decision to Disposition Time: 13:05 Depart Departure Latest Vital Signs Vital Signs Date Time Temp Pulse Resp B/P (MAP) Pulse Ox O2 Delivery O2 Flow Rate FiO2 06/10/18 08:43 65 93 06/10/18 08:00 126/89 (101) 06/10/18 07:48 97.2 16 Room Air Impression: Primary Impression: Postoperative bleeding from incision Condition: Improved Disposition: HOME OR SELF-CARE Referrals: BRUNA ANDRE MD (PCP) Follow up on Wednesday as scheduled or sooner if bleeding reoccurs. Patient Instructions: Postmenopausal Bleeding (GEN) Additional Instructions: Maintain dressing until June 11. Do not remove the Surgicel dressing which is directly on the wound. This will reabsorb interior body over time. If bleeding reoccurs anymore unable to stop the bleeding with direct pressure over 10-15 minutes, return to the emergency department for reevaluation. Maintain in a lying or reclining position most of the day he may use the bathroom as needed. No heavy or exertional activities until cleared by HCAN Nelson MD Jun 10, 2018 07:47
[2018-06-10] MEDS ORDERED: SILVER NITRATE SWABS 10 PKG TP ONE (07:55)
[2018-06-10 08:00] VITALS: BP 126/89
[2018-06-13] MEDS ORDERED: OXYC-854 PO (16:53)
== END 2018-06-10 09:10 | disposition home or self-care (01) ==
LOC: ER 08:08
DX: L76.22 Postprocedural hemorrhage of skin and subcutaneous tissue following other procedure (principal)
CPT/HCPCS: 99282

== ENCOUNTER 2018-07-28 18:09 | Emergency (ER) | payer MEDICAID, MEDICARE ==
[2017-11-27 11:16] VITALS: Wt 72.6 kg
[2018-07-28 18:17] VITALS: BP 145/97
--- NOTE | 2018-07-28 18:29 | ER Report ---
History and Physical Time Seen By MD: 18:23 Hx. of Stated Complaint: STATES HE POPPED HIS SHOULDER BACK IN, HAS SEVERE SHOULDER AND LEFT SIDED WISDOM TOOTH PAIN HPI/ROS CHIEF COMPLAINT: Dental and shoulder pain HISTORY OF PRESENT ILLNESS: This is a 33-year-old male who presents to the emergency department for left upper dental pain and left shoulder pain. Patient states that he's had multiple teeth extracted, has a follow-up appointment with his dentist next week but over the last day or 2 has developed some pain to the left upper teeth, the dentist is planning on pulling the remainder. Patient also states that about 2-3 days ago he was sleeping, rolled over and "dislocated his left shoulder and then it reduced", he states that he's been having pain since then. Did not have an evaluation. Decided to come in for left shoulder as well. No fevers or chills. No chest pain or shortness breath. No nausea or vomiting. REVIEW OF SYSTEMS: Constitutional: No fever, no chills. Eyes: No discharge. ENT: As above. Cardiovascular: No chest pain, no palpitations. Respiratory: No cough, no shortness of breath. Gastrointestinal: No abdominal pain, no vomiting. Genitourinary: No hematuria. Musculoskeletal: As above. Skin: No rashes. Neurological: No headache. Allergies: Coded Allergies: No Known Drug Allergies (Unverified , 02/10/18) Home Meds Active Scripts Penicillin V Potassium 500 Mg Tab (PENICILLIN V POTASSIUM 500 MG TAB) 500 Mg Tablet, 500 MG PO QID for 7 Days, #28 TAB Prov:JUSTUS WOOTEN SOCIOLOGY RESEARCH ASSISTANT-BC 07/28/18 Oxycodone Hcl/Acet 5/325 Mg (ENDOCET 5-325 TABLET) 1 Each Tablet, 1-2 TAB PO Q4H PRN for PAIN, #30 TAB 0 Refills Prov:BRUNA ANDRE MD 06/13/18 Docusate Sodium (COLACE) 100 Mg Capsule, 1 CAP PO BID, #30 CAP 0 Refills TAKE WITH A FULL GLASS OF WATER Prov:BRUNA ANDRE MD 06/09/18 Past Medical/Surgical History The patient has a past medical and surgical history of left shoulder dislocated "20 times", hidradenitis for it to the, multiple skin surgeries, hernia, poor dentition, history of drug use. Hx Smoking: Yes (1 [id number] X 17 YRS) Smoking Status: Current: Every Day Smoker Hx Substance Use Disorder: No Hx Alcohol Use: Yes Constitutional Vital Sign - Last 24 Hours 07/28/18 18:17 Temp 98.2 Pulse 88 Resp 16 B/P (MAP) 145/97 Pulse Ox 90 O2 Delivery Room Air Physical Exam General Appearance: The patient is alert, has no immediate need for airway protection and no signs of toxicity. Eyes: Pupils equal and round no pallor or injection. ENT, Mouth: Mucous membranes are moist. Mild fullness to the left cheek. Multiple missing teeth, the remaining teeth have dental caries, receding gumline, gingivitis. Generalized pain with palpation to the remaining left upper teeth. Respiratory: There are no retractions, lungs are clear to auscultation. Cardiovascular: Regular rate and rhythm. Gastrointestinal: Abdomen is soft and non tender, no masses, bowel sounds normal. Skin: Warm and dry, no rashes. Musculoskeletal: Neck is supple non tender. Extremities pain to left shoulder with very light palpation, however she is able to abduct the shoulder without significant discomfort. Pain with Littlejohn test. No deformities, no crepitus. DIFFERENTIAL DIAGNOSIS: After history and physical exam differential diagnosis was considered for dental abscess, dental caries, Anant's angina, repetitive motion injury, impingement syndrome. Medical Decision Making EKG/Imaging Imaging Location: [facility] [place] Patient: Zaina Cabral : 1985 Visit/Account:[id number] Date of [facility]: 07/28/2018 3 views left shoulder Indication: Pain when rotating. Comparison: Previous x-ray examination of the chest with dedicated views left ribs from October 21, 2017 Findings: Alignment anatomic and left shoulder without fracture or destructive osseous finding. No significant underlying degenerative change. Acromiohumeral interval is within normal limits. Limited views of the left upper lung zone are unremarkable. Visualized left acromioclavicular joint is unremarkable. IMPRESSION: 1. No acute osseous abnormality left shoulder. Report Dictated By: Roberto Ambriz MD at 07/28/2018 7:44 PM Report E-Signed By: Roberto Ambriz MD at 07/28/2018 7:45 PM WSN:[id number] ED Course/Re-evaluation ED Course The patient was admitted to room. A history and physical were obtained. Differential diagnoses were considered. Patient was given 60 mg IM Norflex which did provide some relief. Negative left shoulder x-ray. Patient was given a prescription for penicillin was sent to the patient's pharmacy, patient was instructed to complete entire course of antibiotics, keep his appointment with his dentist next week. Patient did ask for narcotic pain medication I did tell him I am not prescribing narcotic pain medications at this time, would be best for him to take ibuprofen or Tylenol. I did check the [place] PDMP, the patient has had two Rx's for 30 tabs each since May 2018. Decision to Disposition Date: Jul 28, 2018 Decision to Disposition Time: 20:05 Depart Departure Latest Vital Signs Vital Signs Date Time Temp Pulse Resp B/P (MAP) Pulse Ox O2 Delivery O2 Flow Rate FiO2 07/28/18 18:17 98.2 88 16 145/97 90 Room Air Impression: Primary Impression: Pain, dental Additional Impression: Shoulder pain Condition: Improved Disposition: HOME OR SELF-CARE Referrals: BRUNA ANDRE MD (PCP) New Scripts Penicillin V Potassium 500 Mg Tab (PENICILLIN V POTASSIUM 500 MG TAB) 500 Mg Tablet 500 MG PO QID for 7 Days, #28 TAB Prov: JUSTUS WOOTEN 07/28/18 Patient Instructions: Dental Abscess (ED), Dental Caries (ED), Shoulder Pain (ED) Additional Instructions: Please take the antibiotics as prescribed, complete the course. Take Ibuprofen and or Tylenol as needed for pain. Use the sling for your arm pain. Follow up with [facility]. Drink plenty of water. Get plenty of rest. Return to the ED for any other concerns or worsening symptoms. Problem Qualifiers Additional Impression: Shoulder pain Chronicity: unspecified Laterality: left Qualified Codes: M25.512 - Pain in left shoulder JUSTUS WOOTEN-ROBERTO Jul 28, 2018 18:29
[2018-07-28] MEDS ORDERED: ORPHENADRINE 60MG/2ML INJ IM ONE (18:40)
[2018-07-28] MEDS ORDERED: PENI-24 PO (18:42)
--- NOTE | 2018-07-28 19:51 | RADIOLOGY IMAGING REPORT ---
[place] [facility] [place] NAME[place] Zaina Cabral : 1985 MR: [id number] V: [id number] EXAM DATE: ORDERING PHYSICIAN: JUSTUS WOOTEN TECHNOLOGIST: Location: [facility] Patient: Zaina Cabral : 1985 Visit/Account:[id number] Date of Sevice: 07/28/2018 3 views left shoulder Indication: Pain when rotating. Comparison: Previous x-ray examination of the chest with dedicated views left ribs from October 21, 2017 Findings: Alignment anatomic and left shoulder without fracture or destructive osseous finding. No significant underlying degenerative change. Acromiohumeral interval is within normal limits. Limited views of the left upper lung zone are unremarkable. Visualized left acromioclavicular joint is unremarkable. IMPRESSION: 1. No acute osseous abnormality left shoulder. Report Dictated By: Roberto Ambriz MD at 07/28/2018 7:44 PM Report E-Signed By: Roberto Ambriz MD at 07/28/2018 7:45 PM WSN:[id number]
== END 2018-07-28 20:14 | disposition home or self-care (01) ==
LOC: ER 18:26
DX: M25.512 Pain in left shoulder (principal); K08.89 Other specified disorders of teeth and supporting structures; F17.200 Nicotine dependence, unspecified, uncomplicated
CPT/HCPCS: 73030; 96372; 99283; A4565; J2360

== ENCOUNTER 2018-09-08 01:07 | Day surgery (SDC) | payer MEDICARE, MEDICAID ==
[2017-11-27 11:16] VITALS: Ht 167.6 cm; Wt 64.9 kg
[~2018-09-08] VITALS: Ht 167.6 cm; Wt 64.9 kg
[~2018-09-08 01:07] MED LIST changes: +PENI-24 PO
[2018-09-08] MEDS: NORMOSOL R SOLN(*) 1000 ML BAG 1,000 ML IV PRN ×2 (13:29→15:32)
[2018-09-08] MEDS ORDERED: MIDAZOLAM 2 MG/2 ML VIAL IVP PRN (13:35)
[2018-09-08] MEDS ORDERED: FAMOTIDINE 20 MG TAB PO ONE (13:35)
[2018-09-08] MEDS ORDERED: LIDOCAINE/SOD BICARB 8.4% SYR ID ONE (13:35)
[2018-09-08] MEDS ORDERED: NEOMYCIN/POLYMYX/BACITR 30 GM TP ONE (13:36)
[2018-09-08] MEDS ORDERED: ROPIVACAINE 0.5% 20 ML VIAL ONE ×2 (13:36→13:38)
[2018-09-08 13:54] VITALS: BP 132/94
[2018-09-08] MEDS ORDERED: LIDOCAINE MPF 1% 5 ML VIAL ONE (14:06)
[2018-09-08] MEDS ORDERED: DEXAMETHASONE SOD 4 MG/ML VIAL ONE (14:06)
[2018-09-08] MEDS ORDERED: SUGAMMADEX SOD 200 MG/2 ML SDV ONE (14:06)
[2018-09-08] MEDS ORDERED: PROPOFOL EMUL(*) 10MG/ML 20 ML 20 ML ONE (14:06)
[2018-09-08] MEDS ORDERED: ONDANSETRON 4 MG/2 ML VIAL ONE (14:06)
[2018-09-08] MEDS ORDERED: ROCURONIUM BROM 10 MG/ML 10 ML ONE (14:06)
[2018-09-08] MEDS ORDERED: fentaNYL CITR 250 MCG/5 ML AMP ONE (14:07)
[2018-09-08] MEDS ORDERED: KETAMINE HCL 200 MG/20 ML MDV ONE (14:21)
[2018-09-08] MEDS ORDERED: OXYC-373 PO (17:17)
--- NOTE | 2018-09-08 17:21 | Short(Outpt) Discharge Summary ---
Discharge Summary Reason for Hosp/Final Diag: (1) Hidradenitis suppurativa Status: Chronic Hospital Course & Plan: Excision of hidradenitis completed without problems. (2) Wound, open, buttock Status: Chronic Departure Discharge to: Home, Self Care Discharge Instructions Home Meds Active Scripts Oxycodone Hcl/Acetaminophen (OXYCODONE-ACETAMINOPHEN 5-325) 1 Each Tablet, 1 TAB PO Q4H PRN for PAIN, #30 TAB 0 Refills Prov:BRUNA ANDRE MD 09/08/18 Follow up Referrals: General Surgery - 09/09/18 @ Surgery, General with BRUNA ANDRE MD You have a follow up appointment scheduled with Dr. Andre on 09/09/18, at 1:00pm. Diet: Regular Activity: As Tolerated Special Instructions: Leave the dressing in place until I see you back in my office on 09/09/18, at 1:00pm. I will remove the packing and change the dressing in the office. Problem Qualifiers (1) Wound, open, buttock: Encounter type: initial encounter Laterality: right Qualified Codes: S31.819A - Unspecified open wound of right buttock, initial encounter BRUNA ANDRE MD Sep 08, 2018 17:21
[2018-09-08] MEDS ORDERED: fentaNYL CITR 100 MCG/2 ML AMP ONE ×2 (17:24→17:44)
--- NOTE | 2018-09-08 17:26 | Post Operative Progress Note ---
Post Operative Progress Note Date: Sep 08, 2018 Time: 17:21 Surgeon: cMkinley Dictation number: [id number] Anesthesia: GETA by Dr. Flores Pre-Op Diagnosis: Right buttock hidradenitis Post-Op Diagnosis: ERNA Findings: C/W dx Procedure(s): Excision of right buttock hidradenitis Specimen Removed:(May be N/A): Nothing sent to pathology Complications: None Fluids: See anesthesia record Estimated Blood Loss: Minimal Date OP Note Dictated: Sep 08, 2018 Time OP Note Dictated: 17:22 BRUNA ANDRE MD Sep 08, 2018 17:26
[2018-09-08 18:00] VITALS: BP_SYST 137; BP_DIAS 94; BP_DIAS 95
[2018-09-08 18:15] VITALS: BP 137/88
[2018-09-08 18:45] VITALS: BP 131/90
[2018-09-08 19:02] VITALS: BP 151/98
[2018-09-08 19:03] VITALS: BP 134/98
--- NOTE | 2018-09-08 19:45 | NUR ---
191 WENT OVER DISCHARGE INSTRUCTIONS WITH PATIENT. HE VERBALIZED UNDERSTANDING. HE WAS TAKEN OUT AND AMBULATORY ON DISCHARGE. HE STATED HIS FRIEND WAS IN THE [place] AND WAS HERE TO PICK HIM UP. WE WALKED OUT TO THE ER. I TOLD THE PATIENT THAT I WOULD WAIT UNTIL HIS RIDE WAS HERE. 1924 AFTER WAITING WITH PATIENT HE STATED THAT HE DID NOT HAVE A RIDE AND HE DROVE HIMSELF TO THE HOSPITAL. HE STATED HE WAS FINE AND THAT HE CAN DRIVE HIMSELF. STATED HE NEEDED TO HAVE A RIDE AND SOMEONE TO STAY WITH HIM FOR 24 HOURS AFTER PROCEDURE. HE WANTED TO WALK HOME. HE L[facility] IN [facility]. I STATED WE CANNOT LET HIM JUST WALK HOME. TALKED TO HIM ABOUT SIGNING OUT AMA AND DISCUSSED THE RISKS INVOLVED WITH THIS. HE STATED HE DID NOT WANT TO SIGN OUT AMA. 1929 PATIENT WAS ABLE TO GET A HOLD OF A FRIEND TO GET A RIDE AND STATED HE WOULD BE STAYING WITH HER. 1934 PATIENT FORGOT BANDAGES IN THE ROOM. TOOK HIM BACK TO HIS ROOM IN THE WHEELCHAIR. 1939 TOOK PATIENT BACK DOWN TO THE ER. 1954 PATIENTS RIDE CAME TO THE ER. WATCHED PATIENT GOT INTO THE CAR WITH HIS FRIEND.
--- NOTE | 2018-09-09 02:05 | OPERATIVE REPORT 1 ---
EVENT DATE: September 08, 2018 SURGEON: Jose Sen MD ANESTHESIOLOGIST: Maciel Harrison MD ANESTHESIA: General endotracheal anesthesia. PREOPERATIVE DIAGNOSIS Right buttock hidradenitis. POSTOPERATIVE DIAGNOSIS Right buttock hidradenitis. PROCEDURE PERFORMED Hidradenitis excision. COMPLICATIONS None. CONDITION Stable. BLOOD LOSS Minimal. INDICATIONS This is a 33-year-old gentleman who has had pretty extensive hidradenitis on both buttocks, and I have excised several areas, but he has one last area that continues to cause him problems, and he is requesting to have it excised. DESCRIPTION OF PROCEDURE The patient was brought to the operating room and placed supine on the operating table. General endotracheal anesthesia was administered, and he was placed in prone jackknife position on the table. His buttocks were prepped and draped in a sterile fashion. Time-out was completed. I identified the sinus tract and stuck a probe in it and found that the sinus tract tracked cephalad up into throughout the right buttock. I anesthetized the skin with 0.5% bupivacaine plain and then made an incision around the opening in the sinus tract, and then unroofed the entire sinus tract cephalad. This was about 12 cm long. I excised the entire sinus tract, which was full of granulation tissue, and the part I could not excise, I cauterized away all of the granulation tissue. I then made sure the whole wound was hemostatic and then packed it with a moist 4x4 gauze, and then covered it with dry 4x4 gauze and an ABD pad, which was taped into place. He was then placed supine on the table, awakened and extubated in the operating room, and transported to the recovery room in stable condition, having tolerated the procedure without any apparent problems. YASMINE
[2018-09-12] MEDS ORDERED: OXYC-373 PO (14:20)
== END 2018-09-08 18:00 | disposition home or self-care (01) ==
LOC: OR 01:07
PROVIDERS: ATTEND Surgery
DX: L73.2 Hidradenitis suppurativa (principal)
CPT/HCPCS: 11470; A9270; J1100; J2001; J2250; J2405; J2704; J2795; J3010; J3490

== ENCOUNTER 2018-09-10 00:46 | Emergency (ER) | payer MEDICARE, MEDICAID ==
[2017-11-27 11:16] VITALS: Wt 71.7 kg
[~2018-09-10 00:46] MED LIST changes: +OXYC-373 PO
--- NOTE | 2018-09-10 01:11 | ER Report ---
History and Physical Time Seen By MD: 01:11 Hx. of Stated Complaint: PATIENT REPORTS POST-OP BLEEDING FROM HYDRADENITIS ON INNER RIGHT BUTTOCK HPI/ROS CHIEF COMPLAINT: Post-op bleeding HISTORY OF PRESENT ILLNESS: This is a 33 year old male. Has had a hidradenitis supuritiva excision of the right buttock with Dr. Andre. Saw Dr. Crump in clinic today, had packing removed and had a small arterial bleeder that was cau terized and then packed with surgicel and foam. Since then with bleeding that has increased in amount. Having significant pain as well. Allergies: Coded Allergies: No Known Drug Allergies (Unverified , 09/10/18) Home Meds Active Scripts Oxycodone Hcl/Acetaminophen (OXYCODONE-ACETAMINOPHEN 5-325) 1 Each Tablet, 1 TAB PO Q4H PRN for PAIN, #30 TAB 0 Refills Prov:BRUNA ANDRE MD 09/08/18 Reviewed Nurses Notes: Yes Hx Smoking: Yes (1 [id number] X 17 YRS) Smoking Status: Current: Every Day Smoker Hx Substance Use Disorder: No Hx Alcohol Use: Yes Constitutional Vital Sign - Last 24 Hours 09/10/18 09/10/18 09/10/18 09/10/18 00:55 00:56 01:00 01:16 Temp 98.3 Pulse 90 85 Resp 14 B/P (MAP) 131/87 131/87 (102) 134/89 (104) Pulse Ox 89 88 O2 Delivery Room Air 09/10/18 09/10/18 09/10/18 09/10/18 01:30 01:35 01:50 01:55 Pulse 79 87 ??? B/P (MAP) 117/79 (92) Pulse Ox 93 97 85 09/10/18 09/10/18 09/10/18 09/10/18 01:57 02:01 02:05 02:07 Pulse ??? 83 100 112 B/P (MAP) 123/92 (102) 197/116 (143) Pulse Ox 97 98 98 09/10/18 09/10/18 09/10/18 09/10/18 02:10 02:11 02:15 02:17 Pulse 106 88 85 B/P (MAP) 181/109 (133) 169/112 (131) Pulse Ox 99 100 100 09/10/18 09/10/18 09/10/18 09/10/18 02:19 02:20 02:21 02:23 Pulse 93 96 88 B/P (MAP) 168/123 (138) Pulse Ox 100 95 96 09/10/18 09/10/18 09/10/18 09/10/18 02:25 02:27 02:29 02:30 Pulse 85 80 82 B/P (MAP) 154/105 (121) 142/98 (113) Pulse Ox 94 96 95 09/10/18 09/10/18 09/10/18 09/10/18 02:31 02:33 02:35 02:40 Pulse 82 77 84 80 B/P (MAP) 146/94 (111) Pulse Ox 96 91 95 95 09/10/18 09/10/18 09/10/18 02:45 02:55 03:00 Pulse 87 B/P (MAP) 124/83 (97) 132/86 (101) Pulse Ox 98 Physical Exam General: Alert, mild distress due to pain and bleeding. Skin: Dressing removed from right buttock. Several ABD pads that are soaked with blood. Started to clean the blood clots and the foam and surgicel, looks like bleeding from inferior portion of the wound. Cardiovascular: Vitals are stable, the patient has normal peripheral perfusion. Respiratory: Breathing easily. Medical Decision Making Data Points Result Diagram: 09/10/18 0130 Laboratory Hematology Test 09/10/18 01:30 Red Blood Count 4.64 M/uL (4.00-5.60) Mean Corpuscular Volume 85.2 fL (80.0-96.0) Mean Corpuscular Hemoglobin 28.2 pg (26.0-33.0) Mean Corpuscular Hemoglobin Concent 33.1 g/dL (32.0-36.0) Red Cell Distribution Width 17.5 % (11.5-14.5) Mean Platelet Volume 7.9 fL (7.2-11.1) Neutrophils (%) (Auto) 58.7 % (39.4-72.5) Lymphocytes (%) (Auto) 30.5 % (17.6-49.6) Monocytes (%) (Auto) 9.1 % (4.1-12.4) Eosinophils (%) (Auto) 1.3 % (0.4-6.7) Basophils (%) (Auto) 0.4 % (0.3-1.4) Nucleated RBC Relative Count (auto) 0.0 /100WBC Neutrophils # (Auto) 6.9 K/uL (2.0-7.4) Lymphocytes # (Auto) 3.6 K/uL (1.3-3.6) Monocytes # (Auto) 1.1 K/uL (0.3-1.0) Eosinophils # (Auto) 0.2 K/uL (0.0-0.5) Basophils # (Auto) 0.0 K/uL (0.0-0.1) Nucleated RBC Absolute Count (auto) 0.00 K/uL Prothrombin Time 14.0 seconds (12.0-14.4) Prothromb Time International Ratio 1.08 Activated Partial Thromboplast Time 30 seconds (23-35) Chemistry Test 09/10/18 01:30 White Blood Count 11.8 k/uL (4.5-11.0) Red Blood Count 4.64 M/uL (4.00-5.60) Hemoglobin 13.1 g/dL (14.0-18.0) Hematocrit 39.5 % (42.0-52.0) Mean Corpuscular Volume 85.2 fL (80.0-96.0) Mean Corpuscular Hemoglobin 28.2 pg (26.0-33.0) Mean Corpuscular Hemoglobin Concent 33.1 g/dL (32.0-36.0) Red Cell Distribution Width 17.5 % (11.5-14.5) Platelet Count 268 K/uL (150-450) Mean Platelet Volume 7.9 fL (7.2-11.1) Neutrophils (%) (Auto) 58.7 % (39.4-72.5) Lymphocytes (%) (Auto) 30.5 % (17.6-49.6) Monocytes (%) (Auto) 9.1 % (4.1-12.4) Eosinophils (%) (Auto) 1.3 % (0.4-6.7) Basophils (%) (Auto) 0.4 % (0.3-1.4) Nucleated RBC Relative Count (auto) 0.0 /100WBC Neutrophils # (Auto) 6.9 K/uL (2.0-7.4) Lymphocytes # (Auto) 3.6 K/uL (1.3-3.6) Monocytes # (Auto) 1.1 K/uL (0.3-1.0) Eosinophils # (Auto) 0.2 K/uL (0.0-0.5) Basophils # (Auto) 0.0 K/uL (0.0-0.1) Nucleated RBC Absolute Count (auto) 0.00 K/uL Prothrombin Time 14.0 seconds (12.0-14.4) Prothromb Time International Ratio 1.08 Activated Partial Thromboplast Time 30 seconds (23-35) Coagulation Test 09/10/18 01:30 Prothrombin Time 14.0 seconds Prothromb Time International Ratio 1.08 Activated Partial Thromboplast Time 30 seconds ED Course/Re-evaluation Clinical Indication for ER IV: IV Access ED Course After starting to clean the wound and find where it was bleeding, the patient was having too much pain. Called and asked our general surgeon, Dr. Agarwal, to come in and evaluate. I performed a moderated sedation using Ketamine and Dr. Agarwal was able to control the bleeding. See his minor procedure note. The jefferson ent tolerated the sedation well, only needing a small amount of Zofran for nausea as the sedation was wearing off. No changes to his instructions, continue with Percocet and follow-up with Dr. Andre for wound care. Patient expressed his dissatisfaction after the procedure, stating that we should not use "that medicine" on anybody. He did not like the way it made him feel when waking up. Is somewhat angry that we did not use general anesthesia; rude to nurse and staff. He called a friend for a ride. Re-evaluation Procedure: Procedural sedation. A pre-sedation evaluation was completed on the patient. Patient is an appropriate candidate for procedural sedation. The risks of the sedation were discussed with the patient. A time out was completed. The patient was re evaluated immediately prior to initiation of sedation. The patient was sedated with ketamine. The patient was monitored with continuous pulse oximetry There were no complications and no significant hypoxemia. I remained at the bedside for the sedation. The total time I spent in the procedural sedation was 20 minutes. Post sedation evaluation: Patient was alert and cooperative, hemodynamically stable with appropriate respiratory status, temperature and pain control mild nausea and no vomiting. Decision to Disposition Date: Sep 10, 2018 Decision to Disposition Time: 02:29 Depart Departure Latest Vital Signs Vital Signs Date Time Temp Pulse Resp B/P (MAP) Pulse Ox O2 Delivery O2 Flow Rate FiO2 09/10/18 03:00 132/86 (101) 09/10/18 02:55 87 98 09/10/18 00:55 98.3 14 Room Air Impression: Primary Impression: Postoperative bleeding from incision Additional Impressions: Hidradenitis suppurativa Open wound Condition: Improved Disposition: HOME OR SELF-CARE Referrals: BRUNA ANDRE MD (PCP) Additional Instructions: Follow-up with Dr. Andre as planned for wound care. Continue using Percocet as needed for pain. Problem Qualifiers KESHAWN MIMS MD Sep 10, 2018 01:11
[2018-09-10 01:52] LABS: INR 1.08; PLATELET COUNT, AUTOMATED 268 K/uL (150-450)
[2018-09-10] MEDS ORDERED: KETAMINE HCL 500 MG/5 ML VIAL IVP ONE (01:55)
--- NOTE | 2018-09-10 02:30 | Gen Surgery H&P BLANK ---
GENERAL SURGERY H&P BLANK This 33 year old male with hx of recent excision of hidradenitis surgery a few d ays ago by Dr. Sen presents to ED with bleeding from wound. Hemodynamically stable. H&H After informed consent obtained, Dr. Mullen provided moderate sedation with Ketamine. Wound was infiltrated with 20 ml of 1% Xylocaine with epi. Packing removed. A single arterial bleeding was identified. This was controlled with two figure of eight 0 Vicryl suture. Adequate hemostasis achieved. Wound repacked with Surgicel and 4x4 and a ABD dressing applied. Tolerated well. He already has a Percocet RX. Patient will follow up with Dr. Sen as scheduled. MIRNA DOLL MD Sep 10, 2018 02:30
[2018-09-10] MEDS ORDERED: ONDANSETRON 4 MG/2 ML VIAL IVP ONE (02:35)
[2018-09-10 03:00] VITALS: BP 132/86
[2018-09-12] MEDS ORDERED: OXYC-373 PO (14:20)
== END 2018-09-10 03:36 | disposition home or self-care (01) ==
LOC: ER 01:08
DX: L76.22 Postprocedural hemorrhage of skin and subcutaneous tissue following other procedure (principal); L73.2 Hidradenitis suppurativa
CPT/HCPCS: 35226; 85025; 85610; 85730; 96372; 99285; J2405

== ENCOUNTER 2018-12-24 07:14 | Emergency (ER) | payer MEDICARE, MEDICAID ==
[2017-11-27 11:16] VITALS: Wt 72.6 kg
[~2018-12-24 07:14] MED LIST changes: +GABA-549 PO
[2018-12-24 07:18] VITALS: BP 156/113
[2018-12-24] MEDS ORDERED: DIPHTH/TETANUS/ACEL. PERTUSSIS IM ONLY ONE (07:30)
== END 2018-12-24 07:53 | disposition left against medical advice (07) ==
LOC: ER 07:46
DX: Z02.9 Encounter for administrative examinations, unspecified (principal)